=== PATIENT | male | born 1985 | race Caucasian/White ===

== ENCOUNTER 2020-03-06 19:59 | Emergency (ER) | payer MEDICARE, OTHER ==
[2020-03-06 20:12] VITALS: BP 139/74; PULSE 90; TEMP 97; BMI 66.4
[2020-03-06] MEDS ORDERED: METHOCARBAMOL 500 MG TABLET PO ONE (21:04)
[2020-03-06] MEDS ORDERED: KETOROLAC TROMETHAMINE 60 MG/2 ML VIAL IM ONE (21:04)
[2020-03-06] MEDS ORDERED: KETOROLAC TROMETHAMINE 60 MG/2 ML VIAL ONE (21:10)
[2020-03-06] MEDS ORDERED: METHOCARBAMOL 500 MG TABLET ONE (21:11)
== END 2020-03-06 21:56 | disposition home or self-care (01) ==
LOC: JERFT 19:59
PROC: 3E0233Z Introduction of Anti-inflammatory into Muscle, Percutaneous Approach (ICD-10-PCS; principal; 2020-03-06)
DX: M62.830 Muscle spasm of back (principal)
CPT/HCPCS: 96372; 99284-25

== ENCOUNTER 2020-12-03 19:03 | Inpatient (IN) | payer MEDICARE, OTHER ==
[2020-12-03] MEDS ORDERED: DEXAMETHASONE SOD PHOSPHATE 10 MG/1 ML VIAL IVPUSH ONE (20:40)
[2020-12-03] MEDS ORDERED: VANCOMYCIN 1 GM in D5W (PRE-DOCKED) 1,000 MG/250 ML IVPB ONE (20:40)
[2020-12-03] MEDS ORDERED: PIPERACILLIN/TAZOB 4.5 GM 4.5 GM in DEXTROSE 5%-WATER 100 ML IVPB ONE (20:40)
[2020-12-03] MEDS ORDERED: PIPERACILLIN/TAZOB 4.5 GM 4.5 GM/100 ML BAG IVPB ONE (20:48)
[2020-12-03] MEDS ORDERED: DEXAMETHASONE SOD PHOSPHATE 10 MG/1 ML VIAL ONE (20:48)
[2020-12-03] MEDS ORDERED: ALBUTEROL SO4 2.5/IPRATROPIUM 0.5 INH SOL 3 ML VIAL.NEB. NEB ONE (20:48)
[2020-12-03] MEDS ORDERED: VANCOMYCIN 1 GRAM (PRE-DOCKED) 1,000 MG/250 ML BAG IVPB ONE (20:49)
[2020-12-03 20:52] LABS: BASO % 0.4 % (0-2.0); EOS % 1.6 % (0-4.5); HEMATOCRIT 45.8 % (35.4-49); HEMOGLOBIN 15.1 GM/dL (11.7-16.9); LYMPH % 26.3 % (8-40); MEAN PLT VOLUME 8.7 fl (7.5-11.1); MONO % 10.6 % (3.8-10.2); NEUT % 61.1 % (42.8-82.8); PLATELET COUNT 154 10^3/uL (134-434); RBC 5.03 M/mm3 (4.00-5.60); RDW 14.8 % (11.9-15.9); WHITE BLOOD COUNT 7.3 K/mm3 (4.0-10.0)
[2020-12-03 20:59] LABS: INR 1.11 (0.83-1.09); PROTHROMBIN TIME (PATIENT) 13.4 SEC (9.7-13.0)
[2020-12-03 21:01] LABS: ACTIVATED PTT 29.7 SECONDS (25.2-36.5)
[2020-12-03 21:18] LABS: CALCIUM 8.1 mg/dL (8.5-10.1)
[2020-12-03] MEDS: ALBUTEROL SO4 2.5/IPRATROPIUM 0.5 INH SOL 3 ML VIAL.NEB. NEB SCH ×4 (21:18→22:26)
[2020-12-03 21:19] LABS: ALBUMIN 3.2 g/dl (3.4-5.0); BLOOD UREA NITROGEN 8.9 mg/dL (7-18)
[2020-12-03 21:22] LABS: CREATININE 0.7 mg/dL (0.55-1.3)
[2020-12-03 21:23] LABS: BILIRUBIN,TOTAL 0.6 mg/dL (0.2-1)
[2020-12-03 21:24] LABS: TOT PROT 6.2 g/dl (6.4-8.2)
[2020-12-03 21:27] LABS: N-TERMINAL BNP 58.8 pg/ml (5-125)
[2020-12-03 21:44] LABS: PH,URINE 5.5 (5.0-8.0); URINE APPEARANCE CLEAR; URINE BILIRUBIN NEGATIVE (NEGATIVE); URINE COLOR DK YELLOW; URINE GLUCOSE (UA) NEGATIVE (NEGATIVE); URINE KETONE NEGATIVE (NEGATIVE); URINE LEUK ESTERASE NEGATIVE (NEGATIVE); URINE NITRITE NEGATIVE (NEGATIVE); URINE PROTEIN NEGATIVE (NEGATIVE)
[2020-12-03] MEDS ORDERED: FUROSEMIDE 40 MG/4 ML INJECTABLE VIAL IVPUSH ONE (21:48)
[2020-12-03] MEDS ORDERED: FUROSEMIDE 40 MG/4 ML INJECTABLE VIAL ONE (21:54)
[2020-12-04] MEDS ORDERED: PT OWN MED DRAWER 7, Y5N ONE ×4 (06:49→18:17)
[2020-12-04] MEDS: metroNIDAZOLE 500 MG TABLET PO SCH ×2 (06:56→14:00)
[2020-12-04] MEDS: ALBUTEROL SO4 2.5/IPRATROPIUM 0.5 INH SOL 3 ML VIAL.NEB. NEB SCH ×3 (08:05→20:00)
[2020-12-04] MEDS: BUDESONIDE/FORMETEROL FUMARATE 160/4.5 mcg INHALER IH SCH ×2 (09:29→22:16)
[2020-12-04] MEDS: ENOXAPARIN NA (PORCINE) 40 MG/0.4 ML DISP.SYRIN SQ SCH (09:30)
[2020-12-04] MEDS: FUROSEMIDE 40 MG/4 ML INJECTABLE VIAL IVPUSH SCH (09:31)
[2020-12-04] MEDS: methylPREDNISolone NA SUCC 40 MG/1 ML VIAL IVPUSH SCH ×3 (09:34→18:54)
[2020-12-04] MEDS ORDERED: NICOTINE 7 MG/24 HOURS TOPICAL PATCH TD SCH (10:00)
[2020-12-04] MEDS ORDERED: CEFAZOLIN 1 GM/D5W 1 GM/50 ML BAG IVPB SCH (10:00)
[2020-12-04] MEDS ORDERED: CEFAZOLIN 1 GM in DEXTROSE 5%-WATER - 1 GM/50 ML IVPB IVPB SCH (10:00)
[2020-12-04] MEDS ORDERED: ceFAZolin SODIUM 1 GM VIAL ONE (10:15)
[2020-12-04] MEDS ORDERED: DEXTROSE 5%-WATER - 50 ML IVPB ONE ×2 (10:15→18:18)
[2020-12-04 10:30] LABS: ARTERIAL BLOOD GAS BASE EXCESS 9.5 mmol/L (-2-2); ARTERIAL BLOOD GAS PO2 89.6 mmHg (80-100); ARTERIAL BLOOD GAS pH 7.334 (7.350-7.450)
[2020-12-04 10:32] LABS: ALLENS TEST POSITIVE
[2020-12-04] MEDS: BACITRACIN 15 GM TUBE TOPICAL OINTMENT TP SCH (14:31)
[2020-12-04] MEDS: PIPERACILLIN/TAZOB 3.375 GM 3.375 GM in DEXTROSE 5%-WATER - 50 ML IVPB SCH ×2 (17:14→21:37)
[2020-12-04] MEDS ORDERED: PIPERACILLIN/TAZOBACTAM 3.375 GM VIAL IVPB ONE (18:18)
[2020-12-04] MEDS ORDERED: SODIUM CHLORIDE 100 ML IVPB ONE (18:59)
[2020-12-04] MEDS ORDERED: AMPICILLIN NA/SULBACTAM NA 3 GM VIAL ONE (18:59)
[2020-12-04] MEDS: AMPICILLIN NA/SULBACTAM NA 3 GM in SODIUM CHLORIDE 100 ML IVPB SCH (19:01)
[2020-12-05] MEDS ORDERED: AMPICILLIN NA/SULBACTAM NA 3 GM VIAL ONE ×3 (02:04→17:55)
[2020-12-05] MEDS: methylPREDNISolone NA SUCC 40 MG/1 ML VIAL IVPUSH SCH ×3 (03:00→18:01)
[2020-12-05] MEDS: AMPICILLIN NA/SULBACTAM NA 3 GM in SODIUM CHLORIDE 100 ML IVPB SCH ×3 (03:00→18:01)
[2020-12-05] MEDS: ALBUTEROL SO4 2.5/IPRATROPIUM 0.5 INH SOL 3 ML VIAL.NEB. NEB SCH ×3 (08:08→20:00)
[2020-12-05 09:06] LABS: BASO % 0.2 % (0-2.0); HEMATOCRIT 47.8 % (35.4-49); HEMOGLOBIN 15.8 GM/dL (11.7-16.9); LYMPH % 8.7 % (8-40); MCH 30.2 pg (25.7-33.7); MCHC 33.2 g/dl (32.0-35.9); MEAN CELL VOLUME 90.9 fl (80-96); MONO % 3.7 % (3.8-10.2); NEUT % 87.4 % (42.8-82.8); PLATELET COUNT 168 10^3/uL (134-434); RBC 5.26 M/mm3 (4.00-5.60); RDW 14.5 % (11.9-15.9); WHITE BLOOD COUNT 10.7 K/mm3 (4.0-10.0)
[2020-12-05 09:31] LABS: CHOLESTEROL 168 mg/dL (50-200); TRIGLYCERIDES 66 mg/dL (0-150)
[2020-12-05 09:33] LABS: LDL CHOLESTEROL (ONLY SJRH) 114 mg/dL (5-100)
[2020-12-05 09:34] LABS: HDL CHOLESTEROL 37 mg/dL (40-60)
[2020-12-05 09:42] LABS: ALBUMIN 3.5 g/dl (3.4-5.0); BLOOD UREA NITROGEN 12.2 mg/dL (7-18); CALCIUM 8.3 mg/dL (8.5-10.1); MAGNESIUM 2.3 mg/dL (1.8-2.4)
[2020-12-05 09:45] LABS: CREATININE 0.6 mg/dL (0.55-1.3)
[2020-12-05 09:46] LABS: BILIRUBIN,TOTAL 1.3 mg/dL (0.2-1); TOT PROT 6.6 g/dl (6.4-8.2)
[2020-12-05] MEDS ORDERED: SODIUM CHLORIDE 100 ML IVPB ONE ×2 (10:08→17:55)
[2020-12-05] MEDS: BUDESONIDE/FORMETEROL FUMARATE 160/4.5 mcg INHALER IH SCH ×2 (10:29→21:02)
[2020-12-05] MEDS: BACITRACIN 15 GM TUBE TOPICAL OINTMENT TP SCH (10:30)
[2020-12-05] MEDS: FUROSEMIDE 40 MG/4 ML INJECTABLE VIAL IVPUSH SCH (10:31)
[2020-12-05] MEDS: NICOTINE 21 MG/24 HOURS TOPICAL PATCH TD SCH (10:32)
[2020-12-05] MEDS: ENOXAPARIN NA (PORCINE) 40 MG/0.4 ML DISP.SYRIN SQ SCH (10:33)
[2020-12-05 16:58] VITALS: BMI 78.1
[2020-12-06] MEDS ORDERED: AMPICILLIN NA/SULBACTAM NA 3 GM VIAL ONE ×3 (02:02→14:36)
[2020-12-06] MEDS ORDERED: SODIUM CHLORIDE 100 ML IVPB ONE ×3 (02:02→14:36)
[2020-12-06] MEDS: AMPICILLIN NA/SULBACTAM NA 3 GM in SODIUM CHLORIDE 100 ML IVPB SCH ×2 (02:34→10:10)
[2020-12-06] MEDS: methylPREDNISolone NA SUCC 40 MG/1 ML VIAL IVPUSH SCH ×2 (02:34→10:09)
[2020-12-06] MEDS: ALBUTEROL SO4 2.5/IPRATROPIUM 0.5 INH SOL 3 ML VIAL.NEB. NEB SCH ×2 (07:31→13:39)
[2020-12-06] MEDS: BACITRACIN 15 GM TUBE TOPICAL OINTMENT TP SCH (10:09)
[2020-12-06] MEDS: FUROSEMIDE 40 MG/4 ML INJECTABLE VIAL IVPUSH SCH (10:09)
[2020-12-06] MEDS: BUDESONIDE/FORMETEROL FUMARATE 160/4.5 mcg INHALER IH SCH (10:10)
[2020-12-06] MEDS: ENOXAPARIN NA (PORCINE) 40 MG/0.4 ML DISP.SYRIN SQ SCH (10:10)
[2020-12-06] MEDS: NICOTINE 21 MG/24 HOURS TOPICAL PATCH TD SCH (10:10)
[2020-12-06] MEDS: PIPERACILLIN/TAZOB 3.375 GM 3.375 GM in DEXTROSE 5%-WATER - 50 ML IVPB SCH (10:57)
[2020-12-06] MEDS: metroNIDAZOLE 500 MG TABLET PO SCH (10:57)
[2020-12-06 15:38] VITALS: BP 144/86; PULSE 87; TEMP 98.9
[2020-12-07] MEDS ORDERED: predniSONE 20 MG TABLET (UD) PO SCH (10:00)
== END 2020-12-06 17:05 | disposition left against medical advice (07) | DRG 133 ==
LOC: JER 19:03 → JERBED 20:42 → J4W 12-04 03:51
PROVIDERS: ADMIT Internal Medicine; ATTEND Internal Medicine
DX: J96.21 Acute and chronic respiratory failure with hypoxia (principal); E66.2 Morbid (severe) obesity with alveolar hypoventilation; J44.1 Chronic obstructive pulmonary disease with (acute) exacerbation; J45.901 Unspecified asthma with (acute) exacerbation; L03.115 Cellulitis of right lower limb; Z68.45 Body mass index [BMI] 70 or greater, adult; F17.210 Nicotine dependence, cigarettes, uncomplicated; G47.33 Obstructive sleep apnea (adult) (pediatric); J96.22 Acute and chronic respiratory failure with hypercapnia
CPT/HCPCS: 36415; 36600; 71045-TC-FY; 76882-TC-RT-FY; 80053; 80061; 81003; 82550; 82553; 82803; 83036; 83605; 83735; 83880; 84100; 84443; 84484; 85025; 85379; 85610; 85730; 87040; 87070; 87077; 87086; 87186; 87205; 93005; 93010; 93306-TC; 93970-TC; 94640; 94660; 99285-25; C9803; J1100; U0003; U0005

== ENCOUNTER 2020-12-28 21:39 | Inpatient (IN) | payer OTHER ==
[2020-12-29 00:55] LABS: BASO % 0.7 % (0-2.0); EOS % 2.8 % (0-4.5); HEMATOCRIT 48.7 % (35.4-49); HEMOGLOBIN 15.8 GM/dL (11.7-16.9); LYMPH % 30.7 % (8-40); MCH 29.3 pg (25.7-33.7); MCHC 32.4 g/dl (32.0-35.9); MEAN CELL VOLUME 90.4 fl (80-96); MEAN PLT VOLUME 8.5 fl (7.5-11.1); NEUT % 56.8 % (42.8-82.8); PLATELET COUNT 179 10^3/uL (134-434); RBC 5.39 M/mm3 (4.00-5.60); RDW 15.3 % (11.9-15.9); WHITE BLOOD COUNT 9.1 K/mm3 (4.0-10.0)
[2020-12-29] MEDS ORDERED: PIPERACILLIN/TAZOB 4.5 GM 4.5 GM in DEXTROSE 5%-WATER 100 ML IVPB ONE (01:10)
[2020-12-29 01:17] LABS: CHLORIDE 99 mmol/L (98-107); SODIUM 140 mmol/L (136-145)
[2020-12-29 01:19] LABS: CALCIUM 8.5 mg/dL (8.5-10.1)
[2020-12-29 01:20] LABS: ALBUMIN 3.4 g/dl (3.4-5.0); ANION GAP 4 MMOL/L (8-16); BLOOD UREA NITROGEN 11.2 mg/dL (7-18); CO2 38 mmol/L (21-32); GLUCOSE,RANDOM 90 mg/dL (74-106); LIPASE 680 U/L (73-393)
[2020-12-29 01:23] LABS: SGOT/AST 21 U/L (15-37); SGPT/ALT 30 U/L (13-61)
[2020-12-29 01:24] LABS: BILIRUBIN,TOTAL 0.6 mg/dL (0.2-1); TOT PROT 6.6 g/dl (6.4-8.2)
[2020-12-29 01:26] LABS: ALK PHOS 67 U/L (45-117)
[2020-12-29 01:28] LABS: N-TERMINAL BNP 93.6 pg/ml (5-125)
[2020-12-29] MEDS ORDERED: PIPERACILLIN/TAZOB 4.5 GM 4.5 GM/100 ML BAG IVPB ONE (01:29)
[2020-12-29] MEDS ORDERED: FUROSEMIDE 40 MG/4 ML INJECTABLE VIAL ONE (01:33)
[2020-12-29] MEDS: FUROSEMIDE 40 MG/4 ML INJECTABLE VIAL IVPUSH ONE ×2 (01:41→01:47)
[2020-12-29 02:16] LABS: PH,URINE 5.5 (5.0-8.0); URINE APPEARANCE CLEAR; URINE BILIRUBIN NEGATIVE (NEGATIVE); URINE COLOR YELLOW; URINE GLUCOSE (UA) NEGATIVE (NEGATIVE); URINE KETONE NEGATIVE (NEGATIVE); URINE LEUK ESTERASE NEGATIVE (NEGATIVE); URINE NITRITE NEGATIVE (NEGATIVE); URINE PROTEIN NEGATIVE (NEGATIVE)
[2020-12-29] MEDS ORDERED: ALBUTEROL SO4 2.5/IPRATROPIUM 0.5 INH SOL 3 ML VIAL.NEB. NEB PRN (06:48)
[2020-12-29 08:20] VITALS: BMI 71.3
[2020-12-29] MEDS: ENOXAPARIN NA (PORCINE) 40 MG/0.4 ML DISP.SYRIN SQ SCH ×2 (09:22→21:12)
[2020-12-29] MEDS: methylPREDNISolone NA SUCC 40 MG/1 ML VIAL IVPUSH SCH ×2 (09:22→17:44)
[2020-12-29] MEDS: FUROSEMIDE 40 MG/4 ML INJECTABLE VIAL IVPUSH SCH ×2 (09:22→21:13)
[2020-12-29 09:56] LABS: BASO % 0.4 % (0-2.0); EOS % 2.5 % (0-4.5); HEMATOCRIT 49.1 % (35.4-49); HEMOGLOBIN 15.9 GM/dL (11.7-16.9); LYMPH % 21.7 % (8-40); MCHC 32.4 g/dl (32.0-35.9); MEAN CELL VOLUME 92.6 fl (80-96); MEAN PLT VOLUME 8.7 fl (7.5-11.1); MONO % 10.7 % (3.8-10.2); NEUT % 64.7 % (42.8-82.8); PLATELET COUNT 176 10^3/uL (134-434); RDW 15.4 % (11.9-15.9); WHITE BLOOD COUNT 6.8 K/mm3 (4.0-10.0)
[2020-12-29] MEDS: BUDESONIDE/FORMETEROL FUMARATE 80/4.5 mcg INHALER IH SCH ×2 (10:05→21:14)
[2020-12-29 10:56] LABS: BILIRUBIN,TOTAL 0.7 mg/dL (0.2-1); TOT PROT 6.4 g/dl (6.4-8.2)
[2020-12-29 11:03] LABS: ALBUMIN 3.3 g/dl (3.4-5.0)
[2020-12-29 11:06] LABS: PHOSPHOROUS 5.9 mg/dL (2.5-4.9)
[2020-12-29 11:08] LABS: CALCIUM 8.2 mg/dL (8.5-10.1); MAGNESIUM 2.1 mg/dL (1.8-2.4)
[2020-12-30] MEDS: methylPREDNISolone NA SUCC 40 MG/1 ML VIAL IVPUSH SCH ×3 (01:19→18:07)
[2020-12-30 08:11] LABS: BASO % 0.2 % (0-2.0); HEMATOCRIT 48.8 % (35.4-49); HEMOGLOBIN 15.9 GM/dL (11.7-16.9); MCH 29.8 pg (25.7-33.7); MCHC 32.5 g/dl (32.0-35.9); MEAN CELL VOLUME 91.7 fl (80-96); MEAN PLT VOLUME 8.7 fl (7.5-11.1); MONO % 3.5 % (3.8-10.2); NEUT % 86.3 % (42.8-82.8); PLATELET COUNT 191 10^3/uL (134-434); RBC 5.32 M/mm3 (4.00-5.60); RDW 15.1 % (11.9-15.9); WHITE BLOOD COUNT 9.2 K/mm3 (4.0-10.0)
[2020-12-30 08:19] LABS: ALBUMIN 3.3 g/dl (3.4-5.0); BLOOD UREA NITROGEN 13.7 mg/dL (7-18); MAGNESIUM 2.2 mg/dL (1.8-2.4)
[2020-12-30 08:20] LABS: CALCIUM 8.5 mg/dL (8.5-10.1)
[2020-12-30 08:23] LABS: CREATININE 0.6 mg/dL (0.55-1.3); PHOSPHOROUS 3.4 mg/dL (2.5-4.9)
[2020-12-30 08:24] LABS: BILIRUBIN,TOTAL 0.8 mg/dL (0.2-1); TOT PROT 6.3 g/dl (6.4-8.2)
[2020-12-30] MEDS: FUROSEMIDE 40 MG/4 ML INJECTABLE VIAL IVPUSH SCH ×2 (09:44→21:29)
[2020-12-30] MEDS: ENOXAPARIN NA (PORCINE) 40 MG/0.4 ML DISP.SYRIN SQ SCH ×2 (09:44→21:30)
[2020-12-30] MEDS: BUDESONIDE/FORMETEROL FUMARATE 80/4.5 mcg INHALER IH SCH ×2 (09:49→21:30)
[2020-12-30] MEDS: NICOTINE 14 MG/24 HOURS TOPICAL PATCH TD SCH (17:00)
[2020-12-31] MEDS: methylPREDNISolone NA SUCC 40 MG/1 ML VIAL IVPUSH SCH ×2 (02:00→09:18)
[2020-12-31 08:51] LABS: BASO % 0.1 % (0-2.0); HEMATOCRIT 50.6 % (35.4-49); HEMOGLOBIN 16.5 GM/dL (11.7-16.9); LYMPH % 9.8 % (8-40); MCH 29.4 pg (25.7-33.7); MCHC 32.6 g/dl (32.0-35.9); MEAN PLT VOLUME 8.6 fl (7.5-11.1); MONO % 5.7 % (3.8-10.2); NEUT % 84.4 % (42.8-82.8); PLATELET COUNT 191 10^3/uL (134-434); RBC 5.63 M/mm3 (4.00-5.60); RDW 15.5 % (11.9-15.9); WHITE BLOOD COUNT 11.9 K/mm3 (4.0-10.0)
[2020-12-31] MEDS ORDERED: PT OWN MED DRAWER 7, Y5N ONE (08:56)
[2020-12-31] MEDS: ENOXAPARIN NA (PORCINE) 40 MG/0.4 ML DISP.SYRIN SQ SCH ×2 (09:18→21:08)
[2020-12-31] MEDS: NICOTINE 14 MG/24 HOURS TOPICAL PATCH TD SCH (09:18)
[2020-12-31] MEDS: FUROSEMIDE 40 MG/4 ML INJECTABLE VIAL IVPUSH SCH ×2 (09:18→21:06)
[2020-12-31] MEDS: BUDESONIDE/FORMETEROL FUMARATE 80/4.5 mcg INHALER IH SCH ×2 (09:19→21:08)
[2020-12-31 09:23] LABS: ALBUMIN 3.6 g/dl (3.4-5.0); BLOOD UREA NITROGEN 14.9 mg/dL (7-18); MAGNESIUM 2.5 mg/dL (1.8-2.4)
[2020-12-31 09:26] LABS: CREATININE 0.7 mg/dL (0.55-1.3); PHOSPHOROUS 3.3 mg/dL (2.5-4.9)
[2020-12-31 09:27] LABS: BILIRUBIN,TOTAL 1.1 mg/dL (0.2-1)
[2020-12-31 12:30] LABS: OPIATES, URI NEGATIVE (NEGATIVE); PHENCYCLIDINE,URINE NEGATIVE (NEGATIVE); URINE BARBITURATES NEGATIVE (NEGATIVE); URINE BENZODIAZEPINES NEGATIVE (NEGATIVE)
[2020-12-31 12:31] LABS: METHADONE, UR NEGATIVE (NEGATIVE)
[2020-12-31 12:36] LABS: COCAINE, UR NEGATIVE (NEGATIVE); URINE AMPHETAMINES NEGATIVE (NEGATIVE)
[2021-01-01 08:18] LABS: BASO % 0.1 % (0-2.0); EOS % 0.4 % (0-4.5); HEMATOCRIT 51.1 % (35.4-49); HEMOGLOBIN 16.8 GM/dL (11.7-16.9); LYMPH % 27.9 % (8-40); MCH 29.9 pg (25.7-33.7); MEAN CELL VOLUME 90.8 fl (80-96); MEAN PLT VOLUME 8.7 fl (7.5-11.1); MONO % 10.8 % (3.8-10.2); NEUT % 60.8 % (42.8-82.8); PLATELET COUNT 187 10^3/uL (134-434); RBC 5.62 M/mm3 (4.00-5.60); RDW 15.4 % (11.9-15.9); WHITE BLOOD COUNT 9.6 K/mm3 (4.0-10.0)
[2021-01-01 08:37] LABS: CALCIUM 8.9 mg/dL (8.5-10.1)
[2021-01-01 08:38] LABS: ALBUMIN 3.6 g/dl (3.4-5.0); MAGNESIUM 2.4 mg/dL (1.8-2.4)
[2021-01-01 08:41] LABS: CREATININE 0.8 mg/dL (0.55-1.3)
[2021-01-01 08:43] LABS: BILIRUBIN,TOTAL 1.2 mg/dL (0.2-1); TOT PROT 6.8 g/dl (6.4-8.2)
[2021-01-01 09:20] VITALS: BP 138/61; PULSE 68; TEMP 97.8
[2021-01-01] MEDS: NICOTINE 14 MG/24 HOURS TOPICAL PATCH TD SCH (09:20)
[2021-01-01] MEDS: FUROSEMIDE 40 MG/4 ML INJECTABLE VIAL IVPUSH SCH (09:20)
[2021-01-01] MEDS: BUDESONIDE/FORMETEROL FUMARATE 80/4.5 mcg INHALER IH SCH (09:20)
[2021-01-01] MEDS: ENOXAPARIN NA (PORCINE) 40 MG/0.4 ML DISP.SYRIN SQ SCH (09:20)
== END 2021-01-01 16:49 | disposition left against medical advice (07) | DRG 133 ==
LOC: JER 21:39 → JERBED 12-29 02:07 → J6S 12-29 05:46
PROVIDERS: ADMIT Internal Medicine; ATTEND Internal Medicine
PROC: 0Y9C3ZZ Drainage of Right Upper Leg, Percutaneous Approach (ICD-10-PCS; principal; 2020-12-30)
PROC: BH48ZZZ Ultrasonography of Lower Extremity (ICD-10-PCS; 2020-12-30)
DX: J96.21 Acute and chronic respiratory failure with hypoxia (principal); J96.22 Acute and chronic respiratory failure with hypercapnia; E66.01 Morbid (severe) obesity due to excess calories; Z68.45 Body mass index [BMI] 70 or greater, adult; G47.33 Obstructive sleep apnea (adult) (pediatric); F12.90 Cannabis use, unspecified, uncomplicated; I27.20 Pulmonary hypertension, unspecified; F17.210 Nicotine dependence, cigarettes, uncomplicated; J45.909 Unspecified asthma, uncomplicated; L02.415 Cutaneous abscess of right lower limb; I87.8 Other specified disorders of veins; R22.41 Localized swelling, mass and lump, right lower limb; I11.0 Hypertensive heart disease with heart failure; I50.33 Acute on chronic diastolic (congestive) heart failure; Z99.81 Dependence on supplemental oxygen; Z91.14 Patient's other noncompliance with medication regimen
CPT/HCPCS: 10030; 36415; 71045-TC-FY; 80053; 80307; 81003; 83036; 83690; 83735; 83880; 84100; 84484; 85025; 87040; 87070; 87075; 87086; 87102; 87116; 87205; 87206; 87210; 87804; 87899; 93005; 93010; 94660; 99285-25; C1729; C9803; U0003; U0005

== ENCOUNTER 2021-03-05 18:55 | Inpatient (IN) | payer OTHER ==
[2021-03-05] MEDS ORDERED: FUROSEMIDE 40 MG/4 ML INJECTABLE VIAL IVPUSH ONE (19:42)
[2021-03-05] MEDS ORDERED: ALBUTEROL SO4 HFA INHALER IH PRN (19:44)
[2021-03-05] MEDS ORDERED: FUROSEMIDE 40 MG/4 ML INJECTABLE VIAL ONE (19:52)
[2021-03-05] MEDS: ALBUTEROL SO4 2.5/IPRATROPIUM 0.5 INH SOL 3 ML VIAL.NEB. NEB SCH ×2 (19:59→21:11)
[2021-03-05 20:19] VITALS: BMI 76.8
[2021-03-05 20:44] LABS: BASO % 0.3 % (0-2.0); EOS % 0.3 % (0-4.5); HEMOGLOBIN 16.6 GM/dL (11.7-16.9); LYMPH % 15.4 % (8-40); MCH 29.4 pg (25.7-33.7); MEAN CELL VOLUME 91.9 fl (80-96); MEAN PLT VOLUME 9.5 fl (7.5-11.1); MONO % 10.5 % (3.8-10.2); NEUT % 73.5 % (42.8-82.8); PLATELET COUNT 180 10^3/uL (134-434); RBC 5.65 M/mm3 (4.00-5.60); RDW 16.4 % (11.9-15.9); WHITE BLOOD COUNT 11.9 K/mm3 (4.0-10.0)
[2021-03-05 21:01] LABS: CHLORIDE 95 mmol/L (98-107); SODIUM 139 mmol/L (136-145)
[2021-03-05 21:03] LABS: ALBUMIN 3.2 g/dl (3.4-5.0); ANION GAP 5 MMOL/L (8-16); BLOOD UREA NITROGEN 10.2 mg/dL (7-18); CALCIUM 8.7 mg/dL (8.5-10.1); CO2 40 mmol/L (21-32); GLUCOSE,RANDOM 110 mg/dL (74-106)
[2021-03-05 21:06] LABS: CREATININE 0.8 mg/dL (0.55-1.3); SGOT/AST 29 U/L (15-37)
[2021-03-05 21:07] LABS: SGPT/ALT 38 U/L (13-61)
[2021-03-05 21:08] LABS: BILIRUBIN,TOTAL 1.1 mg/dL (0.2-1); TOT PROT 6.5 g/dl (6.4-8.2)
[2021-03-05 21:09] LABS: ALK PHOS 79 U/L (45-117)
[2021-03-05 21:11] LABS: N-TERMINAL BNP 1708.7 pg/ml (5-125)
[2021-03-05] MEDS ORDERED: DEXAMETHASONE SOD PHOSPHATE 10 MG/1 ML VIAL IVPUSH ONE (21:18)
[2021-03-05] MEDS ORDERED: MAGNESIUM SULF 50% (8.12 MEQ/2 ML-1 GM VIAL) IVPB ONE (21:18)
[2021-03-05] MEDS ORDERED: ALBUTEROL SO4 2.5/IPRATROPIUM 0.5 INH SOL 3 ML VIAL.NEB. NEB ONE (21:19)
[2021-03-05] MEDS ORDERED: DEXAMETHASONE SOD PHOSPHATE 10 MG/1 ML VIAL ONE (21:29)
[2021-03-05] MEDS ORDERED: MAGNESIUM SULFATE IN WATER 2 GM/50 ML IVPB IVPB ONE (21:29)
[2021-03-05 22:02] LABS: EPI CELLS 9 /uL (0-25.1); HYALINE CASTS 7 /uL (0-3.1); PH,URINE 5.5 (5.0-8.0); URINE APPEARANCE CLEAR; URINE BACTERIA 269 /uL (0-1359); URINE BILIRUBIN 1+ (NEGATIVE); URINE COLOR DK YELLOW; URINE GLUCOSE (UA) NEGATIVE (NEGATIVE); URINE KETONE TRACE (NEGATIVE); URINE LEUK ESTERASE NEGATIVE (NEGATIVE); URINE NITRITE NEGATIVE (NEGATIVE); URINE PROTEIN 2+ (NEGATIVE); URINE RBC 5 /uL (0-23.9); URINE WBC 20 /uL (0-25.8)
[2021-03-05 22:22] LABS: ARTERIAL BLOOD GAS BASE EXCESS 9.3 mmol/L (-2-2); ARTERIAL BLOOD GAS PO2 41.1 mmHg (80-100); ARTERIAL BLOOD GAS pH 7.277 (7.350-7.450)
[2021-03-05 22:24] LABS: ALLENS TEST POSITIVE
[2021-03-05] MEDS ORDERED: ALBUTEROL SO4 2.5/IPRATROPIUM 0.5 INH SOL 3 ML VIAL.NEB. NEB PRN (22:37)
[2021-03-06] MEDS: NICOTINE 21 MG/24 HOURS TOPICAL PATCH TD SCH ×2 (00:05→09:51)
[2021-03-06 06:05] LABS: ARTERIAL BLD GAS O2 SATURATION 89.4 % (95-98); ARTERIAL BLOOD GAS BASE EXCESS 6.1 mmol/L (-2-2); ARTERIAL BLOOD GAS PO2 74.2 mmHg (80-100)
[2021-03-06 06:11] LABS: ALLENS TEST POSITIVE; ARTERIAL BLOOD GAS pH 7.168 (7.350-7.450); VENT MODE S/T; VENT RATE 14
[2021-03-06 06:53] LABS: BASO % 0.3 % (0-2.0); HEMATOCRIT 55.1 % (35.4-49); HEMOGLOBIN 17.9 GM/dL (11.7-16.9); LYMPH % 8.6 % (8-40); MCH 29.7 pg (25.7-33.7); MCHC 32.4 g/dl (32.0-35.9); MEAN CELL VOLUME 91.4 fl (80-96); MEAN PLT VOLUME 9.1 fl (7.5-11.1); MONO % 4.7 % (3.8-10.2); NEUT % 86.4 % (42.8-82.8); PLATELET COUNT 186 10^3/uL (134-434); RBC 6.02 M/mm3 (4.00-5.60); RDW 16.9 % (11.9-15.9); WHITE BLOOD COUNT 10.5 K/mm3 (4.0-10.0)
[2021-03-06 07:07] LABS: MAGNESIUM 2.6 mg/dL (1.8-2.4)
[2021-03-06 07:11] LABS: PHOSPHOROUS 6.4 mg/dL (2.5-4.9)
[2021-03-06] MEDS ORDERED: ENOXAPARIN NA (PORCINE) 40 MG/0.4 ML DISP.SYRIN SQ ONE (09:44)
[2021-03-06] MEDS ORDERED: FUROSEMIDE 40 MG/4 ML INJECTABLE VIAL ONE (09:44)
[2021-03-06] MEDS ORDERED: LISINOPRIL 5 MG TABLET ONE (09:44)
[2021-03-06] MEDS: LISINOPRIL 5 MG TABLET PO SCH (09:51)
[2021-03-06] MEDS: FUROSEMIDE 40 MG/4 ML INJECTABLE VIAL IVPUSH SCH (09:51)
[2021-03-06] MEDS: ENOXAPARIN NA (PORCINE) 40 MG/0.4 ML DISP.SYRIN SQ SCH (09:51)
[2021-03-06] MEDS: BUDESONIDE/FORMETEROL FUMARATE 80/4.5 mcg INHALER IH SCH (11:32)
[2021-03-07] MEDS: BUDESONIDE/FORMETEROL FUMARATE 80/4.5 mcg INHALER IH SCH ×2 (00:12→09:29)
[2021-03-07] MEDS ORDERED: LISINOPRIL 5 MG TABLET ONE (09:20)
[2021-03-07] MEDS ORDERED: ENOXAPARIN NA (PORCINE) 40 MG/0.4 ML DISP.SYRIN SQ ONE (09:21)
[2021-03-07] MEDS ORDERED: FUROSEMIDE 40 MG/4 ML INJECTABLE VIAL ONE (09:21)
[2021-03-07] MEDS: LISINOPRIL 5 MG TABLET PO SCH (09:29)
[2021-03-07] MEDS: ENOXAPARIN NA (PORCINE) 40 MG/0.4 ML DISP.SYRIN SQ SCH (09:29)
[2021-03-07] MEDS: FUROSEMIDE 40 MG/4 ML INJECTABLE VIAL IVPUSH SCH (09:29)
[2021-03-07] MEDS: NICOTINE 21 MG/24 HOURS TOPICAL PATCH TD SCH (09:29)
[2021-03-07 10:12] LABS: BASO % 0.3 % (0-2.0); EOS % 0.7 % (0-4.5); HEMATOCRIT 50.3 % (35.4-49); HEMOGLOBIN 15.9 GM/dL (11.7-16.9); MCH 29.2 pg (25.7-33.7); MCHC 31.7 g/dl (32.0-35.9); MEAN CELL VOLUME 92.1 fl (80-96); MEAN PLT VOLUME 8.6 fl (7.5-11.1); MONO % 11.9 % (3.8-10.2); NEUT % 69.1 % (42.8-82.8); PLATELET COUNT 172 10^3/uL (134-434); RBC 5.46 M/mm3 (4.00-5.60); RDW 16.8 % (11.9-15.9)
[2021-03-07 10:35] LABS: BLOOD UREA NITROGEN 13.9 mg/dL (7-18); CALCIUM 8.2 mg/dL (8.5-10.1)
[2021-03-07 10:39] LABS: CREATININE 0.7 mg/dL (0.55-1.3)
[2021-03-08] MEDS: BUDESONIDE/FORMETEROL FUMARATE 80/4.5 mcg INHALER IH SCH ×3 (04:24→22:52)
[2021-03-08 08:13] LABS: BASO % 0.4 % (0-2.0); EOS % 1.2 % (0-4.5); HEMATOCRIT 50.4 % (35.4-49); HEMOGLOBIN 16.1 GM/dL (11.7-16.9); MCH 29.4 pg (25.7-33.7); MCHC 31.9 g/dl (32.0-35.9); MEAN CELL VOLUME 92.1 fl (80-96); MEAN PLT VOLUME 8.5 fl (7.5-11.1); MONO % 11.4 % (3.8-10.2); PLATELET COUNT 167 10^3/uL (134-434); RBC 5.48 M/mm3 (4.00-5.60); RDW 16.1 % (11.9-15.9); WHITE BLOOD COUNT 8.6 K/mm3 (4.0-10.0)
[2021-03-08 08:32] LABS: BLOOD UREA NITROGEN 10.4 mg/dL (7-18); CALCIUM 8.4 mg/dL (8.5-10.1)
[2021-03-08 08:35] LABS: CREATININE 0.7 mg/dL (0.55-1.3)
[2021-03-08] MEDS: NICOTINE 21 MG/24 HOURS TOPICAL PATCH TD SCH (10:35)
[2021-03-08] MEDS: ENOXAPARIN NA (PORCINE) 40 MG/0.4 ML DISP.SYRIN SQ SCH (10:40)
[2021-03-08] MEDS ORDERED: LISINOPRIL 5 MG TABLET ONE (12:41)
[2021-03-08] MEDS ORDERED: ENOXAPARIN NA (PORCINE) 40 MG/0.4 ML DISP.SYRIN SQ ONE (12:42)
[2021-03-08] MEDS ORDERED: FUROSEMIDE 40 MG/4 ML INJECTABLE VIAL ONE (12:42)
[2021-03-08] MEDS: FUROSEMIDE 40 MG/4 ML INJECTABLE VIAL IVPUSH SCH (14:19)
[2021-03-08] MEDS: LISINOPRIL 5 MG TABLET PO SCH (14:21)
[2021-03-09] MEDS ORDERED: ALBUTEROL SO4 2.5/IPRATROPIUM 0.5 INH SOL 3 ML VIAL.NEB. NEB PRN (06:56)
[2021-03-09] MEDS ORDERED: ALBUTEROL SO4 HFA INHALER IH PRN (06:56)
[2021-03-09] MEDS: NICOTINE 21 MG/24 HOURS TOPICAL PATCH TD SCH (09:51)
[2021-03-09] MEDS: LISINOPRIL 5 MG TABLET PO SCH (09:51)
[2021-03-09] MEDS: ENOXAPARIN NA (PORCINE) 40 MG/0.4 ML DISP.SYRIN SQ SCH (09:51)
[2021-03-09] MEDS: FUROSEMIDE 40 MG/4 ML INJECTABLE VIAL IVPUSH SCH (09:51)
[2021-03-09] MEDS: BUDESONIDE/FORMETEROL FUMARATE 80/4.5 mcg INHALER IH SCH ×2 (09:52→21:06)
[2021-03-09] MEDS ORDERED: PNEUMOCOCCAL 23 VACCINE 0.5 ML VIAL IM ONE (11:00)
[2021-03-09] MEDS ORDERED: FLU VACC QS2021-22(6MOS UP)/PF 60 MCG/0.5 ML SYRINGE IM ONE (11:00)
[2021-03-10 07:29] LABS: BLOOD UREA NITROGEN 11.7 mg/dL (7-18)
[2021-03-10 07:31] LABS: CALCIUM 8.4 mg/dL (8.5-10.1)
[2021-03-10 07:32] LABS: CREATININE 0.7 mg/dL (0.55-1.3); MAGNESIUM 2.4 mg/dL (1.8-2.4)
[2021-03-10] MEDS: ENOXAPARIN NA (PORCINE) 40 MG/0.4 ML DISP.SYRIN SQ SCH (09:20)
[2021-03-10] MEDS: NICOTINE 21 MG/24 HOURS TOPICAL PATCH TD SCH (09:20)
[2021-03-10] MEDS: LISINOPRIL 5 MG TABLET PO SCH (09:21)
[2021-03-10] MEDS: BUDESONIDE/FORMETEROL FUMARATE 80/4.5 mcg INHALER IH SCH ×2 (09:28→21:35)
[2021-03-10] MEDS: FUROSEMIDE 40 MG/4 ML INJECTABLE VIAL IVPUSH SCH (11:05)
[2021-03-11 07:24] LABS: CALCIUM 8.8 mg/dL (8.5-10.1)
[2021-03-11 07:25] LABS: MAGNESIUM 2.3 mg/dL (1.8-2.4)
[2021-03-11 07:28] LABS: CREATININE 0.5 mg/dL (0.55-1.3); PHOSPHOROUS 5.1 mg/dL (2.5-4.9)
[2021-03-11] MEDS: NICOTINE 21 MG/24 HOURS TOPICAL PATCH TD SCH (09:03)
[2021-03-11] MEDS: ENOXAPARIN NA (PORCINE) 40 MG/0.4 ML DISP.SYRIN SQ SCH (09:03)
[2021-03-11] MEDS: LISINOPRIL 5 MG TABLET PO SCH (09:03)
[2021-03-11] MEDS: FUROSEMIDE 40 MG/4 ML INJECTABLE VIAL IVPUSH SCH (09:03)
[2021-03-11] MEDS: BUDESONIDE/FORMETEROL FUMARATE 80/4.5 mcg INHALER IH SCH ×2 (09:12→21:05)
[2021-03-11] MEDS ORDERED: ALBUTEROL SO4 2.5/IPRATROPIUM 0.5 INH SOL 3 ML VIAL.NEB. NEB PRN (14:10)
[2021-03-11] MEDS ORDERED: ALBUTEROL SO4 HFA INHALER IH PRN (14:10)
[2021-03-11] MEDS: POLYETHYLENE GLYCOL (HEALTHYLAX) 3350 17 GM PACKET PO SCH (20:58)
[2021-03-12 07:26] LABS: BLOOD UREA NITROGEN 9.6 mg/dL (7-18); CALCIUM 8.8 mg/dL (8.5-10.1); MAGNESIUM 2.3 mg/dL (1.8-2.4)
[2021-03-12 07:29] LABS: PHOSPHOROUS 4.4 mg/dL (2.5-4.9)
[2021-03-12 07:30] LABS: CREATININE 0.6 mg/dL (0.55-1.3)
[2021-03-12] MEDS: POLYETHYLENE GLYCOL (HEALTHYLAX) 3350 17 GM PACKET PO SCH (09:39)
[2021-03-12] MEDS: BUDESONIDE/FORMETEROL FUMARATE 80/4.5 mcg INHALER IH SCH (09:40)
[2021-03-12] MEDS ORDERED: ENOXAPARIN NA (PORCINE) 40 MG/0.4 ML DISP.SYRIN SQ SCH (10:00)
[2021-03-12] MEDS ORDERED: FUROSEMIDE 40 MG/4 ML INJECTABLE VIAL IVPUSH SCH (10:00)
[2021-03-12] MEDS ORDERED: LISINOPRIL 5 MG TABLET PO SCH (10:00)
[2021-03-12] MEDS ORDERED: NICOTINE 21 MG/24 HOURS TOPICAL PATCH TD SCH (10:00)
[2021-03-12 10:37] VITALS: BP 163/80; PULSE 88; TEMP 98
== END 2021-03-12 18:13 | disposition left against medical advice (07) | DRG 133 ==
LOC: JER 18:55 → JERBED 21:25 → J5S 03-08 19:14 → J4W 03-09 23:26
DX: J96.21 Acute and chronic respiratory failure with hypoxia (principal); J96.22 Acute and chronic respiratory failure with hypercapnia; J44.1 Chronic obstructive pulmonary disease with (acute) exacerbation; I11.0 Hypertensive heart disease with heart failure; I50.33 Acute on chronic diastolic (congestive) heart failure; J81.1 Chronic pulmonary edema; E78.5 Hyperlipidemia, unspecified; D64.9 Anemia, unspecified; F17.210 Nicotine dependence, cigarettes, uncomplicated; F12.90 Cannabis use, unspecified, uncomplicated; E66.2 Morbid (severe) obesity with alveolar hypoventilation; Z68.45 Body mass index [BMI] 70 or greater, adult; Z99.81 Dependence on supplemental oxygen; Z91.14 Patient's other noncompliance with medication regimen
CPT/HCPCS: 36415; 36600; 71045-TC-FY; 76882-TC-RT-FY; 80048; 80053; 81003; 82550; 82803; 83735; 83880; 84100; 84484; 85025; 85027; 85379; 90686; 90732; 93005; 93010; 94660; 97116-GP; 97161-GP; 99285-25; C9803; E0277; G0008; G0009; J1100; U0003; U0005

== ENCOUNTER 2021-10-21 18:53 | Inpatient (IN) | payer OTHER ==
[2021-10-21 19:03] VITALS: BMI 76.8
[2021-10-21] MEDS ORDERED: ALBUTEROL SO4 2.5/IPRATROPIUM 0.5 INH SOL 3 ML VIAL.NEB. NEB ONE ×2 (19:18→23:33)
[2021-10-21] MEDS: ALBUTEROL SO4 2.5/IPRATROPIUM 0.5 INH SOL 3 ML VIAL.NEB. NEB SCH ×4 (19:23→22:28)
[2021-10-21 20:21] LABS: VENOUS BASE EXCESS 8.3 mmol/L (-2-2); VENOUS O2 SATURATION 88.5 % (70-80); VENOUS PH 7.29 (7.310-7.410)
[2021-10-21 20:22] LABS: BASO % 0.5 % (0-2.0); EOS % 1.3 % (0-4.5); HEMATOCRIT 50.5 % (35.4-49); HEMOGLOBIN 15.8 GM/dL (11.7-16.9); LYMPH % 23.4 % (8-40); MCH 27.3 pg (25.7-33.7); MCHC 31.4 g/dl (32.0-35.9); MEAN PLT VOLUME 8.2 fl (7.5-11.1); MONO % 10.1 % (3.8-10.2); NEUT % 64.7 % (42.8-82.8); PLATELET COUNT 162 10^3/uL (134-434); RBC 5.81 M/mm3 (4.00-5.60); RDW 15.9 % (11.9-15.9); WHITE BLOOD COUNT 8.9 K/mm3 (4.0-10.0)
[2021-10-21 20:25] LABS: VENOUS PCO2 83.4 mmHg (38-52)
[2021-10-21 20:42] LABS: CALCIUM 8.4 mg/dL (8.5-10.1)
[2021-10-21 20:43] LABS: BLOOD UREA NITROGEN 17.1 mg/dL (7-18)
[2021-10-21 20:46] LABS: CREATININE 0.8 mg/dL (0.55-1.3)
[2021-10-21 20:47] LABS: BILIRUBIN,TOTAL 1.1 mg/dL (0.2-1); TOT PROT 5.6 g/dl (6.4-8.2)
[2021-10-21] MEDS ORDERED: CEFTRIAXONE 1,000 MG in DEXTROSE 5%-WATER - 50 ML IVPB ONE (22:20)
[2021-10-21] MEDS ORDERED: VANCOMYCIN/WATER 2 GM/400 ML PREMIX BAG IVPB ONE (22:21)
[2021-10-21] MEDS ORDERED: VANCOMYCIN/WATER FOR INJ (PEG) 2,000 MG/400 ML BAG IVPB ONE (22:31)
[2021-10-21] MEDS ORDERED: CEFTRIAXONE 1 GM/50 ML BAG ONE (22:32)
[2021-10-21 22:37] LABS: INR 1.27 (0.83-1.09); PROTHROMBIN TIME (PATIENT) 14.6 SEC (9.7-13.0)
[2021-10-21 22:39] LABS: ACTIVATED PTT 33.6 SECONDS (25.2-36.5)
[2021-10-21] MEDS ORDERED: FUROSEMIDE 40 MG/4 ML INJECTABLE VIAL IVPUSH ONE (23:29)
[2021-10-21] MEDS ORDERED: BUDESONIDE/FORMETEROL FUMARATE 80/4.5 mcg INHALER IH ONE (23:32)
[2021-10-21] MEDS ORDERED: AZITHROMYCIN IVPB 500 MG/250 ML BAG IVPB ONE ×2 (23:33→23:56)
[2021-10-21] MEDS ORDERED: MAGNESIUM SULF 50% (8.12 MEQ/2 ML-1 GM VIAL) IVPB ONE (23:33)
[2021-10-21] MEDS ORDERED: ALBUTEROL SO4 HFA INHALER IH PRN (23:38)
[2021-10-21] MEDS ORDERED: FUROSEMIDE 40 MG/4 ML INJECTABLE VIAL ONE (23:56)
[2021-10-21] MEDS ORDERED: MAGNESIUM 1GM/D5W - 1 GM/100 ML IVPB IVPB ONE (23:56)
[2021-10-22 00:50] LABS: ARTERIAL BLOOD GAS BASE EXCESS 4.5 mmol/L (-2-2); ARTERIAL BLOOD GAS PO2 168.3 mmHg (80-100); ARTERIAL BLOOD GAS pH 7.318 (7.350-7.450)
[2021-10-22 00:52] LABS: VENT MODE PSV; VENT RATE 18
[2021-10-22] MEDS: BUDESONIDE/FORMETEROL FUMARATE 80/4.5 mcg INHALER IH SCH ×3 (01:40→21:38)
[2021-10-22] MEDS ORDERED: methylPREDNISolone NA SUCC 40 MG/1 ML VIAL ONE (02:24)
[2021-10-22] MEDS: methylPREDNISolone NA SUCC 40 MG/1 ML VIAL IVPUSH SCH ×4 (02:28→21:37)
[2021-10-22] MEDS: ALBUTEROL SO4 2.5/IPRATROPIUM 0.5 INH SOL 3 ML VIAL.NEB. NEB SCH ×4 (08:33→20:40)
[2021-10-22 08:45] LABS: HEMATOCRIT 52.3 % (35.4-49); HEMOGLOBIN 16.3 GM/dL (11.7-16.9); MCH 27.3 pg (25.7-33.7); MCHC 31.1 g/dl (32.0-35.9); MEAN CELL VOLUME 87.8 fl (80-96); MEAN PLT VOLUME 8.1 fl (7.5-11.1); PLATELET COUNT 150 10^3/uL (134-434); RBC 5.96 M/mm3 (4.00-5.60); RDW 15.7 % (11.9-15.9)
[2021-10-22 09:00] LABS: ALBUMIN 3.1 g/dl (3.4-5.0); CALCIUM 8.4 mg/dL (8.5-10.1)
[2021-10-22 09:01] LABS: ALLENS TEST POSITIVE; ARTERIAL BLD GAS O2 SATURATION 90.1 % (95-98); ARTERIAL BLOOD GAS BASE EXCESS 8.7 mmol/L (-2-2)
[2021-10-22 09:01] LABS: BLOOD UREA NITROGEN 17.5 mg/dL (7-18); MAGNESIUM 2.2 mg/dL (1.8-2.4)
[2021-10-22 09:02] LABS: VENT MODE PSV; VENT RATE 18
[2021-10-22 09:03] LABS: PHOSPHOROUS 3.9 mg/dL (2.5-4.9)
[2021-10-22 09:04] LABS: CREATININE 0.6 mg/dL (0.55-1.3)
[2021-10-22 09:05] LABS: TOT PROT 5.9 g/dl (6.4-8.2)
[2021-10-22] MEDS: FUROSEMIDE 40 MG/4 ML INJECTABLE VIAL IVPUSH SCH (09:48)
[2021-10-22] MEDS: LISINOPRIL 5 MG TABLET PO SCH (09:49)
[2021-10-22] MEDS: NICOTINE 21 MG/24 HOURS TOPICAL PATCH TD SCH (09:49)
[2021-10-22] MEDS: ENOXAPARIN NA (PORCINE) 40 MG/0.4 ML DISP.SYRIN SQ SCH ×2 (09:49→21:37)
[2021-10-22] MEDS ORDERED: FUROSEMIDE 40 MG TABLET (FP) PO SCH (10:00)
[2021-10-22] MEDS: NYSTATIN POWDER 100,000 UNITS/GM - 15 GM TOPICAL POWDER TP SCH ×2 (11:58→21:39)
[2021-10-22] MEDS ORDERED: cefTRIAXone SODIUM 1 GM VIAL ONE (15:05)
[2021-10-22] MEDS ORDERED: DEXTROSE 5%-WATER - 50 ML IVPB ONE (15:05)
[2021-10-22] MEDS: FLUoxetine HCL 20 MG CAPSULE PO SCH (15:10)
[2021-10-22] MEDS: CEFTRIAXONE 1 GM in DEXTROSE 5%-WATER - 50 ML IVPB SCH (15:10)
[2021-10-22] MEDS: FLUCONAZOLE 100 MG TABLET (UD) PO SCH (18:56)
[2021-10-22] MEDS: clonazePAM 2 MG TABLET PO SCH (21:37)
[2021-10-23] MEDS: methylPREDNISolone NA SUCC 40 MG/1 ML VIAL IVPUSH SCH ×4 (02:54→22:23)
[2021-10-23] MEDS: ALBUTEROL SO4 2.5/IPRATROPIUM 0.5 INH SOL 3 ML VIAL.NEB. NEB SCH ×4 (07:35→20:00)
[2021-10-23 09:05] LABS: HEMATOCRIT 50.8 % (35.4-49); HEMOGLOBIN 16.2 GM/dL (11.7-16.9); MCH 27.3 pg (25.7-33.7); MCHC 31.8 g/dl (32.0-35.9); MEAN CELL VOLUME 85.7 fl (80-96); MEAN PLT VOLUME 8.6 fl (7.5-11.1); PLATELET COUNT 168 10^3/uL (134-434); RBC 5.93 M/mm3 (4.00-5.60); RDW 15.6 % (11.9-15.9); WHITE BLOOD COUNT 10.4 K/mm3 (4.0-10.0)
[2021-10-23 09:12] LABS: ARTERIAL BLD GAS O2 SATURATION 92.9 % (95-98); ARTERIAL BLOOD GAS BASE EXCESS 10.2 mmol/L (-2-2); ARTERIAL BLOOD GAS PO2 68.1 mmHg (80-100); ARTERIAL BLOOD GAS pH 7.391 (7.350-7.450)
[2021-10-23 09:17] LABS: ALLENS TEST POSITIVE; VENT MODE IPAP-18; VENT RATE 18
[2021-10-23] MEDS: FLUoxetine HCL 20 MG CAPSULE PO SCH (09:33)
[2021-10-23] MEDS: NICOTINE 21 MG/24 HOURS TOPICAL PATCH TD SCH (09:33)
[2021-10-23] MEDS: FUROSEMIDE 40 MG/4 ML INJECTABLE VIAL IVPUSH SCH (09:33)
[2021-10-23] MEDS: ENOXAPARIN NA (PORCINE) 40 MG/0.4 ML DISP.SYRIN SQ SCH ×2 (09:33→22:22)
[2021-10-23] MEDS: clonazePAM 2 MG TABLET PO SCH ×3 (09:34→22:24)
[2021-10-23] MEDS: BUDESONIDE/FORMETEROL FUMARATE 80/4.5 mcg INHALER IH SCH ×2 (09:34→22:23)
[2021-10-23] MEDS: AZITHROMYCIN 250 MG TABLET PO SCH (09:34)
[2021-10-23] MEDS: LISINOPRIL 5 MG TABLET PO SCH (09:34)
[2021-10-23] MEDS: NYSTATIN POWDER 100,000 UNITS/GM - 15 GM TOPICAL POWDER TP SCH ×2 (09:35→22:23)
[2021-10-23 09:36] LABS: BLOOD UREA NITROGEN 13.4 mg/dL (7-18)
[2021-10-23 09:39] LABS: CREATININE 0.7 mg/dL (0.55-1.3)
[2021-10-23] MEDS ORDERED: DEXTROSE 5%-WATER - 50 ML IVPB ONE (09:48)
[2021-10-23] MEDS ORDERED: cefTRIAXone SODIUM 1 GM VIAL ONE (09:48)
[2021-10-23] MEDS: CEFTRIAXONE 1 GM in DEXTROSE 5%-WATER - 50 ML IVPB SCH (10:01)
[2021-10-23] MEDS: FLUCONAZOLE 100 MG TABLET (UD) PO SCH (10:37)
[2021-10-24] MEDS: methylPREDNISolone NA SUCC 40 MG/1 ML VIAL IVPUSH SCH ×4 (02:21→21:28)
[2021-10-24 08:03] LABS: HEMATOCRIT 50.5 % (35.4-49); HEMOGLOBIN 15.9 GM/dL (11.7-16.9); MCH 27.2 pg (25.7-33.7); MCHC 31.5 g/dl (32.0-35.9); MEAN CELL VOLUME 86.3 fl (80-96); MEAN PLT VOLUME 8.5 fl (7.5-11.1); PLATELET COUNT 159 10^3/uL (134-434); RBC 5.85 M/mm3 (4.00-5.60); RDW 15.9 % (11.9-15.9); WHITE BLOOD COUNT 9.8 K/mm3 (4.0-10.0)
[2021-10-24 08:32] LABS: BLOOD UREA NITROGEN 15.3 mg/dL (7-18)
[2021-10-24 08:35] LABS: CREATININE 0.7 mg/dL (0.55-1.3)
[2021-10-24] MEDS: ALBUTEROL SO4 2.5/IPRATROPIUM 0.5 INH SOL 3 ML VIAL.NEB. NEB SCH ×4 (08:40→20:52)
[2021-10-24] MEDS ORDERED: DEXTROSE 5%-WATER - 50 ML IVPB ONE (09:01)
[2021-10-24] MEDS ORDERED: cefTRIAXone SODIUM 1 GM VIAL ONE (09:01)
[2021-10-24] MEDS: AZITHROMYCIN 250 MG TABLET PO SCH (09:07)
[2021-10-24] MEDS: FLUoxetine HCL 20 MG CAPSULE PO SCH (09:07)
[2021-10-24] MEDS: NICOTINE 21 MG/24 HOURS TOPICAL PATCH TD SCH (09:07)
[2021-10-24] MEDS: LISINOPRIL 5 MG TABLET PO SCH (09:07)
[2021-10-24] MEDS: FUROSEMIDE 40 MG/4 ML INJECTABLE VIAL IVPUSH SCH (09:07)
[2021-10-24] MEDS: FLUCONAZOLE 100 MG TABLET (UD) PO SCH (09:07)
[2021-10-24] MEDS: clonazePAM 2 MG TABLET PO SCH ×2 (09:07→21:27)
[2021-10-24] MEDS: ENOXAPARIN NA (PORCINE) 40 MG/0.4 ML DISP.SYRIN SQ SCH ×2 (09:08→21:27)
[2021-10-24] MEDS: NYSTATIN POWDER 100,000 UNITS/GM - 15 GM TOPICAL POWDER TP SCH ×2 (09:11→21:32)
[2021-10-24] MEDS: BUDESONIDE/FORMETEROL FUMARATE 80/4.5 mcg INHALER IH SCH ×2 (09:11→21:32)
[2021-10-24] MEDS: CEFTRIAXONE 1 GM in DEXTROSE 5%-WATER - 50 ML IVPB SCH (09:11)
[2021-10-24] MEDS: ASPIRIN 81 MG CHEWABLE TABLETS PO SCH (09:17)
[2021-10-24 11:52] LABS: ARTERIAL BLD GAS O2 SATURATION 91.7 % (95-98); ARTERIAL BLOOD GAS BASE EXCESS 11.5 mmol/L (-2-2); ARTERIAL BLOOD GAS PO2 62.2 mmHg (80-100); ARTERIAL BLOOD GAS pH 7.422 (7.350-7.450)
[2021-10-24 11:53] LABS: ALLENS TEST POSITIVE; VENT RATE 18
[2021-10-25 07:23] LABS: CALCIUM 8.3 mg/dL (8.5-10.1)
[2021-10-25 07:24] LABS: BLOOD UREA NITROGEN 13.6 mg/dL (7-18)
[2021-10-25 07:25] LABS: HEMATOCRIT 49.5 % (35.4-49); HEMOGLOBIN 15.8 GM/dL (11.7-16.9); MCH 27.4 pg (25.7-33.7); MCHC 31.9 g/dl (32.0-35.9); MEAN CELL VOLUME 85.7 fl (80-96); MEAN PLT VOLUME 8.5 fl (7.5-11.1); PLATELET COUNT 147 10^3/uL (134-434); RBC 5.78 M/mm3 (4.00-5.60); RDW 15.9 % (11.9-15.9); WHITE BLOOD COUNT 10.4 K/mm3 (4.0-10.0)
[2021-10-25 07:27] LABS: CREATININE 0.5 mg/dL (0.55-1.3)
[2021-10-25] MEDS: ALBUTEROL SO4 2.5/IPRATROPIUM 0.5 INH SOL 3 ML VIAL.NEB. NEB SCH ×4 (07:30→20:45)
[2021-10-25 08:30] LABS: ARTERIAL BLD GAS O2 SATURATION 96.1 % (95-98); ARTERIAL BLOOD GAS BASE EXCESS 5.9 mmol/L (-2-2); ARTERIAL BLOOD GAS PO2 86.6 mmHg (80-100); ARTERIAL BLOOD GAS pH 7.365 (7.350-7.450)
[2021-10-25 08:31] LABS: ALLENS TEST POSITIVE; VENT MODE SL; VENT RATE 18
[2021-10-25] MEDS ORDERED: cefTRIAXone SODIUM 1 GM VIAL ONE (09:06)
[2021-10-25] MEDS ORDERED: DEXTROSE 5%-WATER - 50 ML IVPB ONE (09:06)
[2021-10-25] MEDS: FLUoxetine HCL 20 MG CAPSULE PO SCH (09:43)
[2021-10-25] MEDS: methylPREDNISolone NA SUCC 40 MG/1 ML VIAL IVPUSH SCH ×2 (09:43→21:47)
[2021-10-25] MEDS: ENOXAPARIN NA (PORCINE) 40 MG/0.4 ML DISP.SYRIN SQ SCH ×2 (09:43→21:47)
[2021-10-25] MEDS: NICOTINE 21 MG/24 HOURS TOPICAL PATCH TD SCH (09:43)
[2021-10-25] MEDS: FUROSEMIDE 40 MG/4 ML INJECTABLE VIAL IVPUSH SCH (09:43)
[2021-10-25] MEDS: AZITHROMYCIN 250 MG TABLET PO SCH (09:44)
[2021-10-25] MEDS: FLUCONAZOLE 100 MG TABLET (UD) PO SCH (09:44)
[2021-10-25] MEDS: LISINOPRIL 5 MG TABLET PO SCH (09:44)
[2021-10-25] MEDS: CEFTRIAXONE 1 GM in DEXTROSE 5%-WATER - 50 ML IVPB SCH (09:44)
[2021-10-25] MEDS: clonazePAM 2 MG TABLET PO SCH ×2 (09:44→21:46)
[2021-10-25] MEDS: BUDESONIDE/FORMETEROL FUMARATE 80/4.5 mcg INHALER IH SCH ×2 (09:44→21:46)
[2021-10-25] MEDS: ASPIRIN 81 MG CHEWABLE TABLETS PO SCH (09:44)
[2021-10-25] MEDS: NYSTATIN POWDER 100,000 UNITS/GM - 15 GM TOPICAL POWDER TP SCH ×2 (09:45→21:48)
[2021-10-26 06:37] LABS: ARTERIAL BLD GAS O2 SATURATION 96.4 % (95-98); ARTERIAL BLOOD GAS BASE EXCESS 8.6 mmol/L (-2-2); ARTERIAL BLOOD GAS PO2 91.1 mmHg (80-100); ARTERIAL BLOOD GAS pH 7.358 (7.350-7.450)
[2021-10-26 06:39] LABS: ALLENS TEST POSITIVE; VENT RATE 18
[2021-10-26 06:47] LABS: HEMATOCRIT 50.2 % (35.4-49); HEMOGLOBIN 15.8 GM/dL (11.7-16.9); MCH 27.1 pg (25.7-33.7); MCHC 31.4 g/dl (32.0-35.9); MEAN CELL VOLUME 86.2 fl (80-96); MEAN PLT VOLUME 8.1 fl (7.5-11.1); PLATELET COUNT 138 10^3/uL (134-434); RBC 5.83 M/mm3 (4.00-5.60); RDW 16.1 % (11.9-15.9); WHITE BLOOD COUNT 9.3 K/mm3 (4.0-10.0)
[2021-10-26 07:10] LABS: BLOOD UREA NITROGEN 16.4 mg/dL (7-18); CALCIUM 8.4 mg/dL (8.5-10.1)
[2021-10-26 07:14] LABS: CREATININE 0.7 mg/dL (0.55-1.3)
[2021-10-26] MEDS: ALBUTEROL SO4 2.5/IPRATROPIUM 0.5 INH SOL 3 ML VIAL.NEB. NEB SCH ×4 (08:20→20:20)
[2021-10-26] MEDS ORDERED: cefTRIAXone SODIUM 1 GM VIAL ONE (09:02)
[2021-10-26] MEDS ORDERED: DEXTROSE 5%-WATER - 50 ML IVPB ONE (09:02)
[2021-10-26] MEDS: ASPIRIN 81 MG CHEWABLE TABLETS PO SCH (10:21)
[2021-10-26] MEDS: NICOTINE 21 MG/24 HOURS TOPICAL PATCH TD SCH (10:21)
[2021-10-26] MEDS: LISINOPRIL 5 MG TABLET PO SCH (10:21)
[2021-10-26] MEDS: clonazePAM 2 MG TABLET PO SCH ×2 (10:21→22:10)
[2021-10-26] MEDS: FLUCONAZOLE 100 MG TABLET (UD) PO SCH (10:21)
[2021-10-26] MEDS: FLUoxetine HCL 20 MG CAPSULE PO SCH (10:21)
[2021-10-26] MEDS: ENOXAPARIN NA (PORCINE) 40 MG/0.4 ML DISP.SYRIN SQ SCH ×2 (10:21→22:09)
[2021-10-26] MEDS: methylPREDNISolone NA SUCC 40 MG/1 ML VIAL IVPUSH SCH ×2 (10:21→22:09)
[2021-10-26] MEDS: AZITHROMYCIN 250 MG TABLET PO SCH (10:21)
[2021-10-26] MEDS: FUROSEMIDE 40 MG/4 ML INJECTABLE VIAL IVPUSH SCH (10:21)
[2021-10-26] MEDS: CEFTRIAXONE 1 GM in DEXTROSE 5%-WATER - 50 ML IVPB SCH (10:22)
[2021-10-26] MEDS: NYSTATIN POWDER 100,000 UNITS/GM - 15 GM TOPICAL POWDER TP SCH ×2 (10:22→22:09)
[2021-10-26] MEDS: BUDESONIDE/FORMETEROL FUMARATE 80/4.5 mcg INHALER IH SCH ×2 (10:22→22:09)
[2021-10-26 14:18] LABS: MAGNESIUM 2.7 mg/dL (1.8-2.4)
[2021-10-26 14:22] LABS: PHOSPHOROUS 4.8 mg/dL (2.5-4.9)
[2021-10-27] MEDS: ALBUTEROL SO4 2.5/IPRATROPIUM 0.5 INH SOL 3 ML VIAL.NEB. NEB SCH ×4 (07:45→20:30)
[2021-10-27] MEDS: methylPREDNISolone NA SUCC 40 MG/1 ML VIAL IVPUSH SCH (09:48)
[2021-10-27] MEDS: FUROSEMIDE 40 MG/4 ML INJECTABLE VIAL IVPUSH SCH (09:48)
[2021-10-27] MEDS: clonazePAM 2 MG TABLET PO SCH ×2 (09:49→21:41)
[2021-10-27] MEDS: ENOXAPARIN NA (PORCINE) 40 MG/0.4 ML DISP.SYRIN SQ SCH ×2 (09:49→21:40)
[2021-10-27] MEDS: NICOTINE 21 MG/24 HOURS TOPICAL PATCH TD SCH (09:49)
[2021-10-27] MEDS: LISINOPRIL 5 MG TABLET PO SCH (09:49)
[2021-10-27] MEDS: CEFTRIAXONE 1 GM in DEXTROSE 5%-WATER - 50 ML IVPB SCH (09:50)
[2021-10-27] MEDS: ASPIRIN 81 MG CHEWABLE TABLETS PO SCH (09:50)
[2021-10-27] MEDS: FLUoxetine HCL 20 MG CAPSULE PO SCH (09:50)
[2021-10-27] MEDS: FLUCONAZOLE 100 MG TABLET (UD) PO SCH (09:50)
[2021-10-27] MEDS: BUDESONIDE/FORMETEROL FUMARATE 80/4.5 mcg INHALER IH SCH ×2 (09:51→21:43)
[2021-10-27] MEDS: NYSTATIN POWDER 100,000 UNITS/GM - 15 GM TOPICAL POWDER TP SCH ×2 (09:52→21:42)
[2021-10-27] MEDS ORDERED: methylPREDNISolone NA SUCC 40 MG/1 ML VIAL IVPUSH ONE (22:00)
[2021-10-28 07:38] LABS: BASO % 0.1 % (0-2.0); EOS % 0.3 % (0-4.5); HEMATOCRIT 51.9 % (35.4-49); HEMOGLOBIN 16.4 GM/dL (11.7-16.9); LYMPH % 13.1 % (8-40); MCH 27.1 pg (25.7-33.7); MCHC 31.6 g/dl (32.0-35.9); MEAN CELL VOLUME 85.7 fl (80-96); MEAN PLT VOLUME 8.5 fl (7.5-11.1); MONO % 6.3 % (3.8-10.2); NEUT % 80.2 % (42.8-82.8); PLATELET COUNT 149 10^3/uL (134-434); RBC 6.05 M/mm3 (4.00-5.60); RDW 15.8 % (11.9-15.9); WHITE BLOOD COUNT 9.6 K/mm3 (4.0-10.0)
[2021-10-28 08:12] LABS: CALCIUM 8.5 mg/dL (8.5-10.1)
[2021-10-28 08:13] LABS: BLOOD UREA NITROGEN 17.1 mg/dL (7-18)
[2021-10-28 08:16] LABS: CREATININE 0.8 mg/dL (0.55-1.3)
[2021-10-28] MEDS: FUROSEMIDE 40 MG/4 ML INJECTABLE VIAL IVPUSH SCH (09:48)
[2021-10-28] MEDS: methylPREDNISolone NA SUCC 40 MG/1 ML VIAL IVPUSH SCH (09:48)
[2021-10-28] MEDS: FLUoxetine HCL 20 MG CAPSULE PO SCH (09:48)
[2021-10-28] MEDS: CEFTRIAXONE 1 GM in DEXTROSE 5%-WATER - 50 ML IVPB SCH (09:48)
[2021-10-28] MEDS: ENOXAPARIN NA (PORCINE) 40 MG/0.4 ML DISP.SYRIN SQ SCH ×2 (09:49→21:45)
[2021-10-28] MEDS: clonazePAM 2 MG TABLET PO SCH ×2 (09:49→21:46)
[2021-10-28] MEDS: NICOTINE 21 MG/24 HOURS TOPICAL PATCH TD SCH (09:49)
[2021-10-28] MEDS: ASPIRIN 81 MG CHEWABLE TABLETS PO SCH (09:49)
[2021-10-28] MEDS: FLUCONAZOLE 100 MG TABLET (UD) PO SCH (09:49)
[2021-10-28] MEDS: LISINOPRIL 5 MG TABLET PO SCH (09:49)
[2021-10-28] MEDS: NYSTATIN POWDER 100,000 UNITS/GM - 15 GM TOPICAL POWDER TP SCH ×2 (09:50→21:49)
[2021-10-28] MEDS: BUDESONIDE/FORMETEROL FUMARATE 80/4.5 mcg INHALER IH SCH ×2 (09:50→21:48)
[2021-10-28] MEDS: ALBUTEROL SO4 2.5/IPRATROPIUM 0.5 INH SOL 3 ML VIAL.NEB. NEB SCH ×4 (09:54→20:55)
[2021-10-29] MEDS: ALBUTEROL SO4 2.5/IPRATROPIUM 0.5 INH SOL 3 ML VIAL.NEB. NEB SCH ×3 (07:25→15:53)
[2021-10-29 07:57] LABS: BASO % 0.4 % (0-2.0); EOS % 1.4 % (0-4.5); HEMATOCRIT 52.5 % (35.4-49); HEMOGLOBIN 16.6 GM/dL (11.7-16.9); LYMPH % 27.8 % (8-40); MCH 26.8 pg (25.7-33.7); MCHC 31.5 g/dl (32.0-35.9); MEAN CELL VOLUME 84.8 fl (80-96); MEAN PLT VOLUME 8.7 fl (7.5-11.1); MONO % 6.7 % (3.8-10.2); NEUT % 63.7 % (42.8-82.8); PLATELET COUNT 158 10^3/uL (134-434); RBC 6.19 M/mm3 (4.00-5.60); WHITE BLOOD COUNT 11.1 K/mm3 (4.0-10.0)
[2021-10-29] MEDS: FUROSEMIDE 40 MG/4 ML INJECTABLE VIAL IVPUSH SCH (09:51)
[2021-10-29] MEDS: ASPIRIN 81 MG CHEWABLE TABLETS PO SCH (09:51)
[2021-10-29] MEDS: methylPREDNISolone NA SUCC 40 MG/1 ML VIAL IVPUSH SCH (09:51)
[2021-10-29] MEDS: CEFTRIAXONE 1 GM in DEXTROSE 5%-WATER - 50 ML IVPB SCH (09:51)
[2021-10-29] MEDS: NICOTINE 21 MG/24 HOURS TOPICAL PATCH TD SCH (09:51)
[2021-10-29] MEDS: FLUoxetine HCL 20 MG CAPSULE PO SCH (09:51)
[2021-10-29] MEDS: LISINOPRIL 5 MG TABLET PO SCH (09:51)
[2021-10-29] MEDS: clonazePAM 2 MG TABLET PO SCH (09:51)
[2021-10-29] MEDS: NYSTATIN POWDER 100,000 UNITS/GM - 15 GM TOPICAL POWDER TP SCH (10:02)
[2021-10-29] MEDS: BUDESONIDE/FORMETEROL FUMARATE 80/4.5 mcg INHALER IH SCH (10:02)
[2021-10-29] MEDS ORDERED: ENOXAPARIN NA (PORCINE) 40 MG/0.4 ML DISP.SYRIN SQ SCH (10:15)
[2021-10-29 18:58] VITALS: BP 143/89; PULSE 81; RESP 22; TEMP 98.4
== END 2021-10-29 21:21 | disposition home or self-care (01) | DRG 133 ==
LOC: JER 18:53 → JERBED 10-22 01:08 → J4W 10-22 06:24
PROVIDERS: ADMIT Internal Medicine; ATTEND Internal Medicine
DX: J96.21 Acute and chronic respiratory failure with hypoxia (principal); I11.0 Hypertensive heart disease with heart failure; I50.32 Chronic diastolic (congestive) heart failure; F12.90 Cannabis use, unspecified, uncomplicated; J98.11 Atelectasis; J96.22 Acute and chronic respiratory failure with hypercapnia; J45.901 Unspecified asthma with (acute) exacerbation; F17.210 Nicotine dependence, cigarettes, uncomplicated; D68.59 Other primary thrombophilia; E66.2 Morbid (severe) obesity with alveolar hypoventilation; Z68.45 Body mass index [BMI] 70 or greater, adult; B35.6 Tinea cruris
CPT/HCPCS: 36415; 36600; 71045-TC-FY; 80048; 80053; 82803; 83036; 83735; 84100; 84484; 85025; 85027; 85610; 85730; 93005; 93010; 93306-TC; 93970-TC; 94640; 94660; 94761; 97116-GP; 97161-GP; 99285-25; C9803-CS; U0003; U0005

== ENCOUNTER 2022-10-18 21:52 | Inpatient (IN) | payer OTHER ==
[2022-10-18 22:00] VITALS: BMI 76.8
[2022-10-18] MEDS ORDERED: ALBUTEROL SO4 2.5/IPRATROPIUM 0.5 INH SOL 3 ML VIAL.NEB. NEB ONE ×2 (22:10→22:18)
[2022-10-18] MEDS ORDERED: MAGNESIUM SULF 50% (8.12 MEQ/2 ML-1 GM VIAL) IVPB ONE (22:35)
[2022-10-18] MEDS ORDERED: MAGNESIUM SULFATE IN WATER 2 GM/50 ML IVPB IVPB ONE (22:38)
[2022-10-18 22:56] LABS: BASO % 0.7 % (0-2.0); EOS % 1.1 % (0-4.5); HEMATOCRIT 52.4 % (35.4-49); HEMOGLOBIN 16.7 GM/dL (11.7-16.9); LYMPH % 23.8 % (8-40); MCH 27.9 pg (25.7-33.7); MCHC 31.8 g/dl (32.0-35.9); MEAN CELL VOLUME 87.8 fl (80-96); MEAN PLT VOLUME 8.6 fl (7.5-11.1); MONO % 10.1 % (3.8-10.2); NEUT % 64.3 % (42.8-82.8); PLATELET COUNT 166 10^3/uL (134-434); RBC 5.97 M/mm3 (4.00-5.60); RDW 15.3 % (11.9-15.9); VENOUS BASE EXCESS 7.2 mmol/L (-2-2); VENOUS O2 SATURATION 89.4 % (70-80); VENOUS PH 7.23 (7.310-7.410); WHITE BLOOD COUNT 9.6 K/mm3 (4.0-10.0)
[2022-10-18 23:27] LABS: POTASSIUM 4.8 mmol/L (3.5-5.1)
[2022-10-18 23:31] LABS: BLOOD UREA NITROGEN 8.6 mg/dL (7-18); CALCIUM 7.9 mg/dL (8.5-10.1)
[2022-10-18 23:34] LABS: CREATININE 0.8 mg/dL (0.55-1.3)
[2022-10-18 23:35] LABS: BILIRUBIN,TOTAL 0.5 mg/dL (0.2-1)
[2022-10-18] MEDS ORDERED: AZITHROMYCIN IVPB 500 MG in DEXTROSE 5%-WATER - 250 ML IVPB ONE (23:35)
[2022-10-18] MEDS ORDERED: FUROSEMIDE 40 MG/4 ML INJECTABLE VIAL IVPUSH ONE (23:35)
[2022-10-18] MEDS ORDERED: CEFTRIAXONE 2 GM-D5W BAG 2 GM/50 ML BAG IVPB ONE (23:35)
[2022-10-18 23:36] LABS: N-TERMINAL BNP 306.6 pg/ml (5-125)
[2022-10-18] MEDS ORDERED: AZITHROMYCIN IVPB 500 MG/250 ML BAG IVPB ONE (23:39)
[2022-10-18] MEDS ORDERED: CEFTRIAXONE 2 GM/100 ML BAG IVPB ONE (23:39)
[2022-10-18] MEDS ORDERED: FUROSEMIDE 40 MG/4 ML INJECTABLE VIAL ONE (23:39)
[2022-10-19 03:15] LABS: ARTERIAL BLD GAS O2 SATURATION 94.1 % (95-98); ARTERIAL BLOOD GAS BASE EXCESS 3.8 mmol/L (-2-2); ARTERIAL BLOOD GAS PO2 82.5 mmHg (80-100); ARTERIAL BLOOD GAS pH 7.262 (7.350-7.450)
[2022-10-19 03:24] LABS: VENT RATE 18
[2022-10-19] MEDS ORDERED: clonazePAM 0.5 MG TABLET PO PRN (04:53)
[2022-10-19] MEDS ORDERED: ALBUTEROL SO4 HFA INHALER IH PRN (04:53)
[2022-10-19] MEDS ORDERED: FUROSEMIDE 40 MG/4 ML INJECTABLE VIAL IVPUSH ONE (05:48)
[2022-10-19] MEDS: INSULIN SLIDING SCALE (NOVOLOG) 1 VIAL SQ SCH ×4 (06:48→21:15)
[2022-10-19 07:26] LABS: MAGNESIUM 2.2 mg/dL (1.8-2.4)
[2022-10-19 07:28] LABS: ALBUMIN 3.3 g/dl (3.4-5.0); BLOOD UREA NITROGEN 7.2 mg/dL (7-18)
[2022-10-19 07:29] LABS: CREATININE 0.6 mg/dL (0.55-1.3)
[2022-10-19 07:31] LABS: PHOSPHOROUS 4.5 mg/dL (2.5-4.9); TOT PROT 6.5 g/dl (6.4-8.2)
[2022-10-19 07:32] LABS: BILIRUBIN,TOTAL 0.7 mg/dL (0.2-1)
[2022-10-19 07:35] LABS: MCH 27.6 pg (25.7-33.7); MCHC 31.5 g/dl (32.0-35.9); MEAN CELL VOLUME 87.8 fl (80-96); MEAN PLT VOLUME 8.5 fl (7.5-11.1); PLATELET COUNT 158 10^3/uL (134-434); RBC 6.15 M/mm3 (4.00-5.60); RDW 15.5 % (11.9-15.9); WHITE BLOOD COUNT 7.5 K/mm3 (4.0-10.0)
[2022-10-19] MEDS: LISINOPRIL 5 MG TABLET PO SCH (09:26)
[2022-10-19] MEDS: NICOTINE 21 MG/24 HOURS TOPICAL PATCH TD SCH (09:26)
[2022-10-19] MEDS: ASPIRIN COATED 81 MG TABLET.EC PO SCH (09:26)
[2022-10-19] MEDS: ENOXAPARIN NA (PORCINE) 40 MG/0.4 ML DISP.SYRIN SQ SCH ×2 (09:27→21:14)
[2022-10-19] MEDS: CLOTRIMAZOLE 1% CREAM TP SCH ×2 (09:27→21:14)
[2022-10-19] MEDS: BUDESONIDE/FORMETEROL FUMARATE 160/4.5 mcg INHALER IH SCH ×2 (09:27→21:15)
[2022-10-19 11:08] LABS: ARTERIAL BLD GAS O2 SATURATION 95.1 % (95-98); ARTERIAL BLOOD GAS BASE EXCESS 10.7 mmol/L (-2-2); ARTERIAL BLOOD GAS PO2 87.9 mmHg (80-100); ARTERIAL BLOOD GAS pH 7.284 (7.350-7.450)
[2022-10-19 11:10] LABS: ALLENS TEST POSITIVE
[2022-10-19 11:11] LABS: VENT RATE 18
[2022-10-19] MEDS: FUROSEMIDE 40 MG/4 ML INJECTABLE VIAL IVPUSH SCH (13:06)
[2022-10-19] MEDS: methylPREDNISolone NA SUCC 40 MG/1 ML VIAL IVPUSH SCH ×3 (13:09→21:13)
[2022-10-19 15:09] LABS: ARTERIAL BLD GAS O2 SATURATION 94.3 % (95-98); ARTERIAL BLOOD GAS pH 7.317 (7.350-7.450)
[2022-10-19 15:11] LABS: ALLENS TEST POSITIVE
[2022-10-19 15:12] LABS: VENT MODE 18/6
[2022-10-19] MEDS ORDERED: HYDROCORTISONE 2.5% TOPICAL CREAM 30 GM TUBE TP SCH (16:00)
[2022-10-19] MEDS: ALBUTEROL SO4 2.5/IPRATROPIUM 0.5 INH SOL 3 ML VIAL.NEB. NEB PRN ×2 (18:20→20:11)
[2022-10-19] MEDS: SENNOSIDES 8.8 MG/5 ML SYRUP PO SCH (21:18)
[2022-10-19] MEDS: MONTELUKAST NA 10 MG TABLET PO SCH (21:18)
[2022-10-20] MEDS: methylPREDNISolone NA SUCC 40 MG/1 ML VIAL IVPUSH SCH ×4 (02:24→21:28)
[2022-10-20] MEDS: INSULIN SLIDING SCALE (NOVOLOG) 1 VIAL SQ SCH ×4 (06:27→21:28)
[2022-10-20] MEDS: FUROSEMIDE 40 MG/4 ML INJECTABLE VIAL IVPUSH SCH ×2 (06:27→13:31)
[2022-10-20] MEDS ORDERED: HYDROCORTISONE 2.5% TOPICAL CREAM 30 GM TUBE TP SCH (07:09)
[2022-10-20 07:36] LABS: POTASSIUM 4.6 mmol/L (3.5-5.1)
[2022-10-20 07:54] LABS: HEMATOCRIT 52.9 % (35.4-49); HEMOGLOBIN 16.8 GM/dL (11.7-16.9); MCH 27.7 pg (25.7-33.7); MCHC 31.8 g/dl (32.0-35.9); MEAN CELL VOLUME 87.1 fl (80-96); MEAN PLT VOLUME 7.8 fl (7.5-11.1); PLATELET COUNT 153 10^3/uL (134-434); RBC 6.07 M/mm3 (4.00-5.60); RDW 15.7 % (11.9-15.9); WHITE BLOOD COUNT 10.4 K/mm3 (4.0-10.0)
[2022-10-20 08:00] LABS: ALBUMIN 3.2 g/dl (3.4-5.0); BLOOD UREA NITROGEN 10.4 mg/dL (7-18); CALCIUM 8.6 mg/dL (8.5-10.1)
[2022-10-20 08:03] LABS: CREATININE 0.7 mg/dL (0.55-1.3)
[2022-10-20 08:05] LABS: BILIRUBIN,TOTAL 0.8 mg/dL (0.2-1); TOT PROT 6.3 g/dl (6.4-8.2)
[2022-10-20] MEDS: ALBUTEROL SO4 2.5/IPRATROPIUM 0.5 INH SOL 3 ML VIAL.NEB. NEB PRN ×3 (08:14→15:10)
[2022-10-20 08:55] LABS: ARTERIAL BLD GAS O2 SATURATION 95.3 % (95-98); ARTERIAL BLOOD GAS BASE EXCESS 11.7 mmol/L (-2-2); ARTERIAL BLOOD GAS PO2 78.5 mmHg (80-100); ARTERIAL BLOOD GAS pH 7.406 (7.350-7.450)
[2022-10-20 09:02] LABS: ALLENS TEST POSITIVE
[2022-10-20] MEDS: LISINOPRIL 5 MG TABLET PO SCH (09:45)
[2022-10-20] MEDS: ASPIRIN COATED 81 MG TABLET.EC PO SCH (09:45)
[2022-10-20] MEDS: ENOXAPARIN NA (PORCINE) 40 MG/0.4 ML DISP.SYRIN SQ SCH ×2 (09:46→21:27)
[2022-10-20] MEDS: NICOTINE 21 MG/24 HOURS TOPICAL PATCH TD SCH (09:47)
[2022-10-20] MEDS: BUDESONIDE/FORMETEROL FUMARATE 160/4.5 mcg INHALER IH SCH ×2 (09:47→21:29)
[2022-10-20] MEDS: CLOTRIMAZOLE 1% CREAM TP SCH (11:16)
[2022-10-20] MEDS: KETOCONAZOLE 2% CREAM - 60GM TUBE TP SCH (17:24)
[2022-10-20] MEDS: PANTOPRAZOLE SODIUM 40 MG VIAL IVPUSH SCH (21:27)
[2022-10-20] MEDS: MONTELUKAST NA 10 MG TABLET PO SCH (21:27)
[2022-10-20] MEDS: SENNOSIDES 8.8 MG/5 ML SYRUP PO SCH (21:29)
[2022-10-21] MEDS: methylPREDNISolone NA SUCC 40 MG/1 ML VIAL IVPUSH SCH ×3 (02:20→17:08)
[2022-10-21] MEDS: FUROSEMIDE 40 MG TABLET (FP) PO SCH ×2 (06:27→13:12)
[2022-10-21] MEDS: INSULIN SLIDING SCALE (NOVOLOG) 1 VIAL SQ SCH ×4 (06:28→22:15)
[2022-10-21 08:39] LABS: ARTERIAL BLD GAS O2 SATURATION 89.4 % (95-98); ARTERIAL BLOOD GAS BASE EXCESS 10.6 mmol/L (-2-2); ARTERIAL BLOOD GAS PO2 61.8 mmHg (80-100); ARTERIAL BLOOD GAS pH 7.346 (7.350-7.450)
[2022-10-21 08:45] LABS: ALLENS TEST POSITIVE
[2022-10-21 09:35] LABS: HEMATOCRIT 51.2 % (35.4-49); HEMOGLOBIN 16.5 GM/dL (11.7-16.9); LYMPH % 6.9 % (8-40); MCH 27.8 pg (25.7-33.7); MCHC 32.2 g/dl (32.0-35.9); MEAN CELL VOLUME 86.4 fl (80-96); MEAN PLT VOLUME 8.7 fl (7.5-11.1); NEUT % 89.1 % (42.8-82.8); PLATELET COUNT 166 10^3/uL (134-434); RBC 5.93 M/mm3 (4.00-5.60); RDW 15.5 % (11.9-15.9); WHITE BLOOD COUNT 12.5 K/mm3 (4.0-10.0)
[2022-10-21 09:55] LABS: POTASSIUM 4.5 mmol/L (3.5-5.1)
[2022-10-21] MEDS: ASPIRIN COATED 81 MG TABLET.EC PO SCH (10:07)
[2022-10-21] MEDS: ENOXAPARIN NA (PORCINE) 40 MG/0.4 ML DISP.SYRIN SQ SCH ×2 (10:07→21:48)
[2022-10-21] MEDS: LISINOPRIL 5 MG TABLET PO SCH (10:07)
[2022-10-21] MEDS: PANTOPRAZOLE SODIUM 40 MG VIAL IVPUSH SCH ×2 (10:07→21:48)
[2022-10-21] MEDS: NICOTINE 21 MG/24 HOURS TOPICAL PATCH TD SCH (10:08)
[2022-10-21] MEDS: BUDESONIDE/FORMETEROL FUMARATE 160/4.5 mcg INHALER IH SCH ×2 (10:08→21:49)
[2022-10-21] MEDS: KETOCONAZOLE 2% CREAM - 60GM TUBE TP SCH (10:08)
[2022-10-21 10:10] LABS: ALBUMIN 3.2 g/dl (3.4-5.0); BLOOD UREA NITROGEN 14.5 mg/dL (7-18); CALCIUM 8.5 mg/dL (8.5-10.1)
[2022-10-21 10:13] LABS: CREATININE 0.7 mg/dL (0.55-1.3)
[2022-10-21 10:15] LABS: TOT PROT 6.2 g/dl (6.4-8.2)
[2022-10-21 10:16] LABS: BILIRUBIN,TOTAL 1.3 mg/dL (0.2-1)
[2022-10-21 14:53] LABS: ARTERIAL BLD GAS O2 SATURATION 96.1 % (95-98); ARTERIAL BLOOD GAS BASE EXCESS 8.6 mmol/L (-2-2); ARTERIAL BLOOD GAS PO2 87.9 mmHg (80-100); ARTERIAL BLOOD GAS pH 7.359 (7.350-7.450)
[2022-10-21 14:54] LABS: ALLENS TEST POSITIVE
[2022-10-21 14:55] LABS: VENT RATE 20
[2022-10-21] MEDS: MONTELUKAST NA 10 MG TABLET PO SCH (21:48)
[2022-10-21] MEDS: SENNOSIDES 8.8 MG/5 ML SYRUP PO SCH (22:00)
[2022-10-22] MEDS: methylPREDNISolone NA SUCC 40 MG/1 ML VIAL IVPUSH SCH ×3 (01:09→17:01)
[2022-10-22] MEDS: FUROSEMIDE 40 MG TABLET (FP) PO SCH ×2 (05:27→13:07)
[2022-10-22] MEDS: INSULIN SLIDING SCALE (NOVOLOG) 1 VIAL SQ SCH ×4 (06:11→21:12)
[2022-10-22 06:30] LABS: ARTERIAL BLD GAS O2 SATURATION 98.7 % (95-98); ARTERIAL BLOOD GAS BASE EXCESS 8.1 mmol/L (-2-2); ARTERIAL BLOOD GAS PO2 149.7 mmHg (80-100); ARTERIAL BLOOD GAS pH 7.338 (7.350-7.450)
[2022-10-22 06:44] LABS: BASO % 0.1 % (0-2.0); HEMATOCRIT 53.7 % (35.4-49); HEMOGLOBIN 16.9 GM/dL (11.7-16.9); LYMPH % 7.3 % (8-40); MCH 27.7 pg (25.7-33.7); MCHC 31.5 g/dl (32.0-35.9); MEAN CELL VOLUME 87.7 fl (80-96); MEAN PLT VOLUME 8.5 fl (7.5-11.1); MONO % 5.7 % (3.8-10.2); NEUT % 86.9 % (42.8-82.8); PLATELET COUNT 148 10^3/uL (134-434); RBC 6.12 M/mm3 (4.00-5.60); RDW 15.4 % (11.9-15.9); WHITE BLOOD COUNT 9.8 K/mm3 (4.0-10.0)
[2022-10-22 07:13] LABS: POTASSIUM 4.4 mmol/L (3.5-5.1)
[2022-10-22 07:16] LABS: ALBUMIN 3.2 g/dl (3.4-5.0); CALCIUM 8.4 mg/dL (8.5-10.1)
[2022-10-22 07:17] LABS: BLOOD UREA NITROGEN 14.3 mg/dL (7-18)
[2022-10-22 07:19] LABS: CREATININE 0.6 mg/dL (0.55-1.3)
[2022-10-22 07:21] LABS: BILIRUBIN,TOTAL 1.3 mg/dL (0.2-1)
[2022-10-22] MEDS: PANTOPRAZOLE SODIUM 40 MG VIAL IVPUSH SCH ×2 (09:58→21:15)
[2022-10-22] MEDS: ASPIRIN COATED 81 MG TABLET.EC PO SCH (09:58)
[2022-10-22] MEDS: KETOCONAZOLE 2% CREAM - 60GM TUBE TP SCH (09:58)
[2022-10-22] MEDS: LISINOPRIL 5 MG TABLET PO SCH (09:58)
[2022-10-22] MEDS: ENOXAPARIN NA (PORCINE) 40 MG/0.4 ML DISP.SYRIN SQ SCH ×2 (09:58→21:12)
[2022-10-22] MEDS: NICOTINE 21 MG/24 HOURS TOPICAL PATCH TD SCH (09:58)
[2022-10-22] MEDS: BUDESONIDE/FORMETEROL FUMARATE 160/4.5 mcg INHALER IH SCH ×2 (09:58→21:16)
[2022-10-22 10:53] LABS: ARTERIAL BLD GAS O2 SATURATION 96.4 % (95-98); ARTERIAL BLOOD GAS BASE EXCESS 10.1 mmol/L (-2-2); ARTERIAL BLOOD GAS PO2 89.8 mmHg (80-100); ARTERIAL BLOOD GAS pH 7.377 (7.350-7.450)
[2022-10-22 11:02] LABS: ALLENS TEST POSITIVE
[2022-10-22] MEDS: ALBUTEROL SO4 2.5/IPRATROPIUM 0.5 INH SOL 3 ML VIAL.NEB. NEB PRN (13:04)
[2022-10-22] MEDS: SENNOSIDES 8.8 MG/5 ML SYRUP PO SCH (21:16)
[2022-10-22] MEDS: MONTELUKAST NA 10 MG TABLET PO SCH (21:16)
[2022-10-23] MEDS: methylPREDNISolone NA SUCC 40 MG/1 ML VIAL IVPUSH SCH ×2 (01:28→09:53)
[2022-10-23] MEDS: INSULIN SLIDING SCALE (NOVOLOG) 1 VIAL SQ SCH ×2 (06:30→11:35)
[2022-10-23] MEDS: FUROSEMIDE 40 MG TABLET (FP) PO SCH ×2 (06:30→14:26)
[2022-10-23 06:42] VITALS: RESP 18
[2022-10-23 09:40] LABS: HEMATOCRIT 50.6 % (35.4-49); HEMOGLOBIN 16.7 GM/dL (11.7-16.9); MCH 28.2 pg (25.7-33.7); MEAN CELL VOLUME 85.6 fl (80-96); MEAN PLT VOLUME 8.3 fl (7.5-11.1); PLATELET COUNT 130 10^3/uL (134-434); RBC 5.91 M/mm3 (4.00-5.60); RDW 15.2 % (11.9-15.9); WHITE BLOOD COUNT 9.2 K/mm3 (4.0-10.0)
[2022-10-23] MEDS: ASPIRIN COATED 81 MG TABLET.EC PO SCH (09:52)
[2022-10-23] MEDS: PANTOPRAZOLE SODIUM 40 MG VIAL IVPUSH SCH (09:52)
[2022-10-23] MEDS: LISINOPRIL 5 MG TABLET PO SCH (09:52)
[2022-10-23] MEDS: NICOTINE 21 MG/24 HOURS TOPICAL PATCH TD SCH (09:52)
[2022-10-23] MEDS: KETOCONAZOLE 2% CREAM - 60GM TUBE TP SCH (09:53)
[2022-10-23] MEDS: ENOXAPARIN NA (PORCINE) 40 MG/0.4 ML DISP.SYRIN SQ SCH (09:53)
[2022-10-23] MEDS: BUDESONIDE/FORMETEROL FUMARATE 160/4.5 mcg INHALER IH SCH (09:53)
[2022-10-23 10:05] LABS: POTASSIUM 3.8 mmol/L (3.5-5.1)
[2022-10-23 10:08] LABS: CALCIUM 8.1 mg/dL (8.5-10.1)
[2022-10-23 10:11] LABS: CREATININE 0.8 mg/dL (0.55-1.3)
[2022-10-23 10:13] LABS: BILIRUBIN,TOTAL 1.3 mg/dL (0.2-1); TOT PROT 5.6 g/dl (6.4-8.2)
[2022-10-23 14:26] VITALS: BP 162/92; TEMP 98.6
[2022-10-23 14:29] VITALS: PULSE 79
[2022-10-23] MEDS ORDERED: methylPREDNISolone NA SUCC 40 MG/1 ML VIAL IVPUSH SCH (22:00)
== END 2022-10-23 16:00 | disposition left against medical advice (07) | DRG 133 ==
LOC: JER 21:52 → JERBED 10-19 00:12 → J4S 10-19 03:19
PROVIDERS: ADMIT Internal Medicine; ATTEND Internal Medicine
DX: J96.22 Acute and chronic respiratory failure with hypercapnia (principal); Z99.81 Dependence on supplemental oxygen; J45.901 Unspecified asthma with (acute) exacerbation; I50.33 Acute on chronic diastolic (congestive) heart failure; B35.4 Tinea corporis; F17.210 Nicotine dependence, cigarettes, uncomplicated; F41.9 Anxiety disorder, unspecified; Z68.45 Body mass index [BMI] 70 or greater, adult; J96.21 Acute and chronic respiratory failure with hypoxia; D75.1 Secondary polycythemia; K62.5 Hemorrhage of anus and rectum; J44.1 Chronic obstructive pulmonary disease with (acute) exacerbation; E66.2 Morbid (severe) obesity with alveolar hypoventilation; I11.0 Hypertensive heart disease with heart failure; I89.0 Lymphedema, not elsewhere classified; K21.9 Gastro-esophageal reflux disease without esophagitis; R22.31 Localized swelling, mass and lump, right upper limb; Z53.29 Procedure and treatment not carried out because of patient's decision for other reasons
CPT/HCPCS: 0241U-QW; 36415; 36600; 71045-TC-FY; 76882-TC-RT-FY; 80053; 80061; 82803; 82962; 83735; 83880; 84100; 84484; 85025; 85027; 85651; 86140; 87040; 93005; 93010; 93306-TC; 94150; 94640; 94660; 99285-25

== ENCOUNTER 2023-07-15 00:02 | Inpatient (IN) | payer OTHER ==
[2023-07-15 00:23] VITALS: BMI 82.7
[2023-07-15 01:09] LABS: BASO % 0.5 % (0-2.0); EOS % 1.1 % (0-4.5); HEMATOCRIT 48.6 % (35.4-49); HEMOGLOBIN 16.1 GM/dL (11.7-16.9); LYMPH % 22.8 % (8-40); MCH 29.6 pg (25.7-33.7); MCHC 33.2 g/dl (32.0-35.9); MONO % 10.2 % (3.8-10.2); NEUT % 65.4 % (42.8-82.8); PLATELET COUNT 149 10^3/uL (134-434); RBC 5.46 M/mm3 (4.00-5.60); RDW 18.2 % (11.9-15.9); WHITE BLOOD COUNT 9.3 K/mm3 (4.0-10.0)
[2023-07-15 02:17] LABS: INR 1.22 (0.83-1.09); PROTHROMBIN TIME (PATIENT) 14.1 SEC (9.7-13.0)
[2023-07-15 02:19] LABS: ACTIVATED PTT 33.1 SECONDS (25.2-36.5)
[2023-07-15 02:35] LABS: POTASSIUM 4.2 mmol/L (3.5-5.1)
[2023-07-15 02:37] LABS: BLOOD UREA NITROGEN 14.6 mg/dL (7-18); CALCIUM 8.8 mg/dL (8.5-10.1)
[2023-07-15 02:40] LABS: CREATININE 0.7 mg/dL (0.55-1.3)
[2023-07-15 02:42] LABS: BILIRUBIN,TOTAL 1.1 mg/dL (0.2-1); TOT PROT 5.8 g/dl (6.4-8.2)
[2023-07-15 03:20] LABS: ARTERIAL BLD GAS O2 SATURATION 97.7 % (95-98); ARTERIAL BLOOD GAS BASE EXCESS 3.7 mmol/L (-2-2); ARTERIAL BLOOD GAS PO2 108.5 mmHg (80-100); ARTERIAL BLOOD GAS pH 7.368 (7.350-7.450)
[2023-07-15 03:21] LABS: ALLENS TEST POSITIVE
[2023-07-15] MEDS ORDERED: FUROSEMIDE 40 MG/4 ML INJECTABLE VIAL ONE (04:57)
[2023-07-15] MEDS: FUROSEMIDE 40 MG/4 ML INJECTABLE VIAL IVPUSH ONE (05:04)
[2023-07-15 05:10] LABS: N-TERMINAL BNP 769.5 pg/ml (5-125)
[2023-07-15] MEDS: ENOXAPARIN NA (PORCINE) 40 MG/0.4 ML DISP.SYRIN SQ SCH (10:12)
[2023-07-15] MEDS ORDERED: ALBUTEROL SO4 2.5/IPRATROPIUM 0.5 INH SOL 3 ML VIAL.NEB. NEB PRN (10:28)
[2023-07-15] MEDS: FUROSEMIDE 40 MG/4 ML INJECTABLE VIAL IVPUSH SCH (13:05)
[2023-07-15] MEDS: NYSTATIN 100,000 UNIT/GM TOPICAL CREAM 15 GM TUBE TP SCH (21:28)
[2023-07-15] MEDS: ATORVASTATIN CA 10 MG TABLET (FP) PO SCH (21:28)
[2023-07-15] MEDS: MONTELUKAST NA 10 MG TABLET PO SCH (21:28)
[2023-07-15] MEDS: BUDESONIDE/FORMETEROL FUMARATE 160/4.5 mcg INHALER IH SCH (21:29)
[2023-07-15] MEDS: INSULIN ASPART SLIDING SCALE (NOVOLOG) 1 VIAL SQ SCH (22:13)
[2023-07-16 07:49] LABS: BASO % 0.2 % (0-2.0); EOS % 0.4 % (0-4.5); HEMATOCRIT 48.8 % (35.4-49); HEMOGLOBIN 15.6 GM/dL (11.7-16.9); LYMPH % 23.9 % (8-40); MCH 29.5 pg (25.7-33.7); MCHC 31.9 g/dl (32.0-35.9); MEAN CELL VOLUME 92.4 fl (80-96); MEAN PLT VOLUME 8.6 fl (7.5-11.1); MONO % 11.9 % (3.8-10.2); NEUT % 63.6 % (42.8-82.8); PLATELET COUNT 154 10^3/uL (134-434); RBC 5.28 M/mm3 (4.00-5.60); RDW 16.5 % (11.9-15.9); WHITE BLOOD COUNT 7.7 K/mm3 (4.0-10.0)
[2023-07-16 07:52] LABS: INR 1.15 (0.83-1.09); PROTHROMBIN TIME (PATIENT) 13.3 SEC (9.7-13.0)
[2023-07-16 07:56] LABS: ACTIVATED PTT 31.1 SECONDS (25.2-36.5)
[2023-07-16 08:11] LABS: ALBUMIN 2.9 g/dl (3.4-5.0); BLOOD UREA NITROGEN 11.5 mg/dL (7-18); CALCIUM 8.6 mg/dL (8.5-10.1); MAGNESIUM 2.2 mg/dL (1.8-2.4)
[2023-07-16 08:14] LABS: CREATININE 0.6 mg/dL (0.55-1.3); PHOSPHOROUS 4.6 mg/dL (2.5-4.9)
[2023-07-16 08:16] LABS: BILIRUBIN,TOTAL 1.4 mg/dL (0.2-1); TOT PROT 5.5 g/dl (6.4-8.2)
[2023-07-16 08:20] LABS: N-TERMINAL BNP 186.2 pg/ml (5-125)
[2023-07-16] MEDS: ASPIRIN 81 MG CHEWABLE TABLETS PO SCH (09:19)
[2023-07-16] MEDS ORDERED: NICOTINE POLACRILEX 4 MG GUM BUC PRN ×2 (09:19→16:26)
[2023-07-16] MEDS: LISINOPRIL 5 MG TABLET PO SCH (09:19)
[2023-07-16] MEDS: ENOXAPARIN NA (PORCINE) 40 MG/0.4 ML DISP.SYRIN SQ SCH (09:49)
[2023-07-16] MEDS: CLOTRIMAZOLE 1% CREAM TP SCH (11:06)
[2023-07-16] MEDS: ZINC OXIDE 20% TOPICAL OINTMENT 30 GM TUBE TP SCH (11:06)
[2023-07-16] MEDS: INSULIN ASPART SLIDING SCALE (NOVOLOG) 1 VIAL SQ SCH (12:28)
[2023-07-16 13:24] LABS: BILIRUBIN,DIRECT 0.3 mg/dL (0.0-0.2)
[2023-07-16] MEDS: NICOTINE 21 MG/24 HOURS TOPICAL PATCH TD SCH (14:14)
[2023-07-17 06:50] LABS: POTASSIUM 3.9 mmol/L (3.5-5.1)
[2023-07-17 06:51] LABS: CALCIUM 8.5 mg/dL (8.5-10.1)
[2023-07-17 06:52] LABS: ALBUMIN 3.2 g/dl (3.4-5.0); BLOOD UREA NITROGEN 10.6 mg/dL (7-18)
[2023-07-17 06:56] LABS: CREATININE 0.7 mg/dL (0.55-1.3)
[2023-07-17 06:58] LABS: BILIRUBIN,TOTAL 2.2 mg/dL (0.2-1); TOT PROT 5.7 g/dl (6.4-8.2)
[2023-07-19] MEDS: FUROSEMIDE 40 MG TABLET (FP) PO SCH (06:01)
[2023-07-19 07:41] LABS: BASO % 0.4 % (0-2.0); EOS % 1.5 % (0-4.5); HEMATOCRIT 53.3 % (35.4-49); HEMOGLOBIN 17.1 GM/dL (11.7-16.9); LYMPH % 21.4 % (8-40); MCH 29.3 pg (25.7-33.7); MCHC 32.2 g/dl (32.0-35.9); MEAN CELL VOLUME 91.2 fl (80-96); MEAN PLT VOLUME 8.6 fl (7.5-11.1); MONO % 10.7 % (3.8-10.2); PLATELET COUNT 164 10^3/uL (134-434); RBC 5.85 M/mm3 (4.00-5.60); RDW 15.7 % (11.9-15.9); WHITE BLOOD COUNT 7.4 K/mm3 (4.0-10.0)
[2023-07-19 07:57] LABS: POTASSIUM 3.9 mmol/L (3.5-5.1)
[2023-07-19 08:21] LABS: ALBUMIN 3.4 g/dl (3.4-5.0); BLOOD UREA NITROGEN 11.8 mg/dL (7-18); CALCIUM 9.2 mg/dL (8.5-10.1)
[2023-07-19 08:25] LABS: CREATININE 0.7 mg/dL (0.55-1.3)
[2023-07-19 08:26] LABS: BILIRUBIN,TOTAL 2.5 mg/dL (0.2-1); TOT PROT 6.4 g/dl (6.4-8.2)
[2023-07-19] MEDS: FLUoxetine HCL 20 MG CAPSULE PO SCH (21:38)
[2023-07-20 08:19] LABS: BASO % 0.6 % (0-2.0); EOS % 2.8 % (0-4.5); HEMATOCRIT 51.4 % (35.4-49); HEMOGLOBIN 16.2 GM/dL (11.7-16.9); LYMPH % 23.3 % (8-40); MCH 28.8 pg (25.7-33.7); MCHC 31.5 g/dl (32.0-35.9); MEAN CELL VOLUME 91.4 fl (80-96); MEAN PLT VOLUME 8.7 fl (7.5-11.1); MONO % 11.7 % (3.8-10.2); NEUT % 61.6 % (42.8-82.8); PLATELET COUNT 140 10^3/uL (134-434); RBC 5.63 M/mm3 (4.00-5.60); RDW 16.2 % (11.9-15.9); WHITE BLOOD COUNT 6.9 K/mm3 (4.0-10.0)
[2023-07-20 09:01] LABS: CALCIUM 9.1 mg/dL (8.5-10.1)
[2023-07-20 09:02] LABS: ALBUMIN 3.2 g/dl (3.4-5.0); BLOOD UREA NITROGEN 12.2 mg/dL (7-18)
[2023-07-20 09:07] LABS: BILIRUBIN,TOTAL 2.5 mg/dL (0.2-1); CREATININE 0.6 mg/dL (0.55-1.3)
[2023-07-20 09:09] LABS: TOT PROT 5.8 g/dl (6.4-8.2)
[2023-07-20 12:21] VITALS: RESP 20
[2023-07-20 14:59] VITALS: BP 139/75; PULSE 85; TEMP 98.1
== END 2023-07-20 16:23 | disposition home or self-care (01) | DRG 194 ==
LOC: JER 00:02 → JERBED 04:11 → OBSVTOIN 09:07 → J2W 09:15 → J4S 07-16 20:02
PROVIDERS: ADMIT Internal Medicine; ATTEND Internal Medicine
DX: I11.0 Hypertensive heart disease with heart failure (principal); I50.33 Acute on chronic diastolic (congestive) heart failure; J96.21 Acute and chronic respiratory failure with hypoxia; J96.22 Acute and chronic respiratory failure with hypercapnia; E66.01 Morbid (severe) obesity due to excess calories; Z68.45 Body mass index [BMI] 70 or greater, adult; I50.32 Chronic diastolic (congestive) heart failure; J44.1 Chronic obstructive pulmonary disease with (acute) exacerbation; E11.9 Type 2 diabetes mellitus without complications; E78.5 Hyperlipidemia, unspecified; F17.210 Nicotine dependence, cigarettes, uncomplicated; G47.33 Obstructive sleep apnea (adult) (pediatric); I89.8 Other specified noninfective disorders of lymphatic vessels and lymph nodes; B35.4 Tinea corporis
CPT/HCPCS: 0241U-QW; 36415; 36600; 71045-TC-FY; 76882-TC-RT-FY; 80053; 82248; 82803; 82962; 83735; 83880; 84100; 84484; 85025; 85610; 85730; 93005; 93010; 93306-TC; 94660; 97116-GP; 97161-GP; 99285-25; G0378